=== PATIENT | male | born 1960 | race Two or more races ===

== ENCOUNTER 2017-05-12 19:07 | Emergency (ER) | payer SELFPAY ==
--- NOTE | 2017-05-12 19:15 | PDOC ---
History of Present Illness - General History Source: Patient Exam Limitations: No Limitations - History of Present Illness Initial Comments: 05/12/17 21:02 56 year old male, with significant past medical history of HTN and diabetes, who presents to the emergency room complaining of 2 days of dysuria, urinary frequency, and suprapubic pain. The patient is Kyrgyz speaking and history was obtained and translated by his daughter. He states that the suprapubic pain increases when he feels like he has to urinate. The patient notes that he also experienced lower back pain this morning that has since subsided after taking ibuprofen. Denies hematuria. Denies fever, chills, nausea, vomiting. Denies diarrhea, constipation. Denies any prostate history. Allergies: NKA Social Hx: The patient recently moved here and does not have a PCP, bundle breaker, or filling mixer here. <Alecia Silveira - Last Filed: 05/12/17 21:02> <Dayanna Munoz - Last Filed: 05/12/17 22:16> - General Chief Complaint: Pain, Acute Stated Complaint: PAINFUL URINATION/BACK PAIN Time Seen by Provider: 05/12/17 19:11 Past History <Alecia Silveira - Last Filed: 05/12/17 21:02> <Dayanna Munoz - Last Filed: 05/12/17 22:16> - Past Medical History Allergies/Adverse Reactions: Allergies Allergy/AdvReac Type Severity Reaction Status Date / Time No Known Allergies Allergy Verified 05/12/17 19:08 Home Medications: Ambulatory Orders Ciprofloxacin [Cipro (Restricted To Id)] 250 mg PO BID #14 tablet 05/12/17 Glipizide [Glipizide ER] 2 mg PO DAILY 05/12/17 Ramipril 5 mg PO DAILY 05/12/17 Review of Systems - Review of Systems Able to Perform ROS?: Yes Comments:: 05/12/17 21:03 GENERAL/CONSTITUTIONAL: No fever or chills. No weakness. HEAD, EYES, EARS, NOSE AND THROAT: No change in vision. No ear pain or discharge. No sore throat. CARDIOVASCULAR: No chest pain or shortness of breath. RESPIRATORY: No cough, wheezing, or hemoptysis. GASTROINTESTINAL: +lower abdominal pain. No nausea, vomiting, diarrhea or constipation. GENITOURINARY: +dysuria +frequency MUSCULOSKELETAL: No joint or muscle swelling or pain. No neck or back pain. SKIN: No rash NEUROLOGIC: No headache, vertigo, loss of consciousness, or change in strength/ sensation. ENDOCRINE: No increased thirst. No abnormal weight change. HEMATOLOGIC/LYMPHATIC: No anemia, easy bleeding, or history of blood clots. ALLERGIC/IMMUNOLOGIC: No hives or skin allergy. <Alecia Silveira - Last Filed: 05/12/17 21:02> *Physical Exam - Vital Signs Last Vital Signs Temp Pulse Resp BP Pulse Ox 98.1 F 92 H 16 174/78 99 05/12/17 19:11 05/12/17 19:11 05/12/17 19:11 05/12/17 19:11 05/12/17 19:11 - Physical Exam Comments: 05/12/17 21:04 GENERAL: Awake, alert, and fully oriented, in no acute distress HEAD: No signs of trauma EYES: PERRLA, EOMI, sclera anicteric, conjunctiva clear ENT: Auricles normal inspection, hearing grossly normal, nares patent, oropharynx clear without exudates. Moist mucosa NECK: Normal ROM, supple, no lymphadenopathy, JVD, or masses LUNGS: Breath sounds equal, clear to auscultation bilaterally. No wheezes, and no crackles HEART: Regular rate and rhythm, normal S1 and S2, no murmurs, rubs or gallops ABDOMEN: +mild suprapubic tenderness.. Mildly distended. Soft, normoactive bowel sounds. No guarding, no rebound. No masses EXTREMITIES: Normal range of motion, no edema. No clubbing or cyanosis. No cords, erythema, or tenderness NEUROLOGICAL: Cranial nerves II through XII grossly intact. Normal speech, normal gait SKIN: Warm, Dry, normal turgor, no rashes or lesions noted. <Alecia Silveira - Last Filed: 05/12/17 21:02> ED Treatment Course - ADDITIONAL ORDERS Additional order review: Laboratory Results 05/12/17 19:15 Urine Color Yellow Urine Appearance Clear Urine pH 5.0 Ur Specific [place] < 1.005 L Urine Protein Negative Urine Glucose (UA) 1+ H Urine Ketones Negative Urine Blood 2+ H Urine Nitrite Negative Urine Bilirubin Negative Urine Urobilinogen 0.2 Ur Leukocyte Esterase Negative Urine RBC 5-10 Urine WBC 0-2 Urine Bacteria Few <Alecia Silveira - Last Filed: 05/12/17 21:02> Progress Note - Progress Note Progress Note: Documentation has been prepared under my direction and personally reviewed by me in its entirety. I attest that this documented accurately reflects all work, treatment, procedures and medical decision making performed by me. <Dayanna Munoz - Last Filed: 05/12/17 22:16> Medical Decision Making - Medical Decision Making As noted above, this 56-year-old man with a history of hypertension/diabetes presents with a few day history of burning with urination along with urinary urgency/frequency. No associated symptoms of fever or nausea/vomiting. Although he noted back pain earlier today (mainly right flank), this was mild and resolved after [id number] ibuprofen. No previous history of UTI and he denies history of prostate issues. Exam as noted. Urinalysis notable for RBCs/WBCs and few bacteria. Urine sent for culture and sensitivity. Especially in light of patient's underlying history of diabetes, we will empirically treat patient with ciprofloxacin 250 mg twice a day. Prescription for one-week course transmitted to pharmacy at first dose given here in the emergency room. Patient does not have a general physician yet (moved here a few months ago). Since patient is self-pay, [facility] will be referred because of their sliding scale policy. Patient will also be given a urology consult. He should call the office tomorrow for follow-up within the next few days. If he has worsening pain/fever /vomiting in the interim, he should return here to the ER. <Dayanna Munoz - Last Filed: 05/12/17 22:16> *DC/Admit/Observation/Transfer - Attestations Scribe Attestion: 05/12/17 21:05 Documentation prepared by LUCINA Daley, acting as medical secretary for Dayanna Munoz MD. <Alecia Silveira - Last Filed: 05/12/17 21:02> <Dayanna Munoz - Last Filed: 05/12/17 22:16> Diagnosis at time of Disposition: UTI (urinary tract infection) Qualifiers: Urinary tract infection type: acute cystitis Hematuria presence: without hematuria Qualified Code(s): N30.00 - Acute cystitis without hematuria - Discharge Dispostion Disposition: HOME Condition at time of disposition: Stable - Prescriptions Prescriptions: Ciprofloxacin [Cipro (Restricted To Id)] 250 mg PO BID #14 tablet - Referrals Referrals: [facility] [Provider Group] Antonio Hudson MD [Staff Physician] - Call tomorrow - Patient Instructions Printed Discharge Instructions: Urinary Tract Infection Additional Instructions: Drink plenty of water Cipro 250 mg twice a day for 1 week Call urologist () tomorrow for follow-up within the next 2-3 days Follow-up with [facility] for general medical care Return to ER if you have worsening pain or develop fever or vomiting Print Language: NIGERIEN
[2017-05-12 19:39] VITALS: BP 174/78; PULSE 92; TEMP 98.1; BMI 21.6
[2017-05-12 19:48] LABS: URINE APPEARANCE CLEAR; URINE COLOR YELLOW
[2017-05-12 19:49] LABS: URINE BILIRUBIN NEGATIVE (NEGATIVE); URINE BLOOD 2+ (NEGATIVE); URINE GLUCOSE (UA) 1+ (NEGATIVE); URINE KETONE NEGATIVE (NEGATIVE); URINE LEUK ESTERASE NEGATIVE (NEGATIVE); URINE NITRITE NEGATIVE (NEGATIVE); URINE PROTEIN NEGATIVE (NEGATIVE); URINE UROBILINOGEN 0.2 (0.2-1.0)
[2017-05-12 20:34] LABS: URINE BACTERIA FEW /hpf (NEGATIVE); URINE WBC 0-2 (0-2)
[2017-05-12] MEDS ORDERED: CIPROFLOXACIN 250 MG TABLET (RESTRICTED TO ID) PO ONE ×2 (20:56→21:05)
== END 2017-05-12 21:34 | disposition home or self-care (01) ==
LOC: FER 19:07
DX: N30.00 Acute cystitis without hematuria (principal); I10 Essential (primary) hypertension; E11.9 Type 2 diabetes mellitus without complications
CPT/HCPCS: 81003; 81015; 87086; 99281-25

== ENCOUNTER 2017-05-14 16:14 | Inpatient (IN) | payer OTHER ==
--- NOTE | 2017-05-14 16:21 | PDOC ---
Rapid Medical Evaluation Time Seen by Provider: 05/14/17 16:17 Medical Evaluation: Allergies Allergy/AdvReac Type Severity Reaction Status Date / Time No Known Allergies Allergy Verified 05/14/17 16:16 05/14/17 16:18 The patient presents with a chief complaint of: rt kidney pain, went to other hopsital yesterday and was told he had a uti. Pt prescribed cipro and took 4 tablets already with worsening pain I have performed a brief in-person evaluation of this patient. Pertinent physical exam findings: vss, I have ordered the following: ua, ucx, cbc, comp The patient will proceed to the ED for further evaluation. Discharge Disposition - Diagnosis Kidney pain - Referrals - Patient Instructions - Post Discharge Activity
--- NOTE | 2017-05-14 16:27 | PDOC ---
History of Present Illness - General Chief Complaint: Pain, Acute Stated Complaint: PAIN Time Seen by Provider: 05/14/17 16:17 History Source: Patient - History of Present Illness Initial Comments: 05/14/17 17:00 Patient is a 56 y.o. male with a PMH of NIDDM and HTN as well as recent evaluation at [facility] who presents to the ED c/o L sided flank pain as well as suprapubic - the latter persisting from his evaluation on 05/12. Patient notes orange colored urine (on Pyridium) as well as urinary retention but no fevers, chills, nausea, vomiting, diarrhea. Patient on Ciprofloxacin following evaluation at [facility] - taken 4 pills with no relief of pain. NKDA Surgical: denies Social: denies cigarettes, denies alcohol, denies recreational drugs PMD: None- will refer Past History - Past Medical History Allergies/Adverse Reactions: Allergies Allergy/AdvReac Type Severity Reaction Status Date / Time No Known Allergies Allergy Verified 05/14/17 16:16 Home Medications: Ambulatory Orders Ciprofloxacin [Cipro (Restricted To Id)] 250 mg PO BID #14 tablet 05/12/17 Glipizide [Glipizide ER] 2 mg PO DAILY 05/12/17 Ramipril 5 mg PO DAILY 05/12/17 COPD: No Diabetes: Yes HTN: Yes - Immunization History Immunization Up to Date: Yes - Suicide/Smoking/Psychosocial Hx Smoking History: Never smoked Have you smoked in the past 12 months: No Hx Alcohol Use: No Drug/Substance Use Hx: No Substance Use Type: None *Physical Exam - Vital Signs Last Vital Signs Temp Pulse Resp BP Pulse Ox 98.3 F 83 20 169/83 99 05/14/17 16:16 05/14/17 16:16 05/14/17 16:16 05/14/17 16:16 05/14/17 16:16 - Physical Exam General Appearance: Yes: Nourished Respiratory/Chest: positive: Lungs Clear Cardiovascular: positive: S1, S2 Gastrointestinal/Abdominal: positive: Distended, Tenderness, Other (Tympanitic in all 4 quadrants). negative: Protuberent, Guarding, Rebound Musculoskeletal: positive: CVA Tenderness (L). negative: CVA Tenderness (R) Extremity: positive: Normal Capillary Refill Integumentary: positive: Normal Color, Dry, Warm Neurologic: positive: Fully Oriented, Alert ED Treatment Course - LABORATORY CBC & Chemistry Diagram: 05/15/17 06:40 05/16/17 06:00 Medical Decision Making - Medical Decision Making 05/14/17 17:21 Patient is a 56 y.o. male who presents abdominal pain, patient currently being treated for UTI (Day 2 of Ceftriaxone). On PE patient's abdomen is distended with some suprapubic TTP. Bedside U/S showed B/L hydronephrosis as well as possible bladder mass (ragged borders, 2-3 cm circumference) - moderate clinical suspicion for malignancy. UA Nitrite (+). Will start patient on IV Abx. CT Scan ordered, pending @ time of signout; patient to be admitted to inpatient medicine service, Dr. Agrawal. *DC/Admit/Observation/Transfer Diagnosis at time of Disposition: Kidney pain, TOYA (acute kidney injury), UTI (urinary tract infection), Urinary retention - Discharge Dispostion Condition at time of disposition: Fair - Referrals - Patient Instructions - Post Discharge Activity
--- NOTE | 2017-05-14 16:30 | PDOC ---
Attending Attestation - HPI HPI: 05/14/17 17:14 56 year old male with PMH of HTN and diabetes, who presents to the emergency room with 4 days of lower abdominal pain, increased abdominal distention and dysuria. - Physicial Exam PE: 05/14/17 17:15 Constitutional: Awake, alert, oriented. No acute distress. Head: Normocephalic. Atraumatic Eyes: PERRL. EOMI. Conjunctivae are not pale. Cardiovascular: Regular rate. Regular rhythm. S1, S2 regular. Distal pulses are 2+ and symmetric. Pulmonary/Chest: No evidence of respiratory distress. Clear to auscultation bilaterally No wheezing, rales or rhonchi. Abdominal: +abdomen is distended to the umbilicus,tympanitic, and diffusely tender. No organomegaly. Back: No CVA tenderness. Skin: Skin is warm and dry. No petechiae. No purpura. Neurological: Alert and oriented to person, place, and time. Cranial nerves II -XII are grossly intact. Normal speech. Strength is grossly symmetric. No sensory deficits. Psychiatric: Good eye contact. Normal interaction, affect and behavior. - Medical Decision Making 05/14/17 17:20 Barrios was placed. [place] urine drained to 1400ccs. Line was clamped so he does not get post obstructive diuresis . <Alecia Silveira - Last Filed: 05/14/17 17:20> - Resident Resident Name: NatyCelsa - ED Attending Attestation I have performed the following: I have examined & evaluated the patient, The case was reviewed & discussed with the resident, I agree w/resident's findings & plan, Exceptions are as noted - Medical Decision Making 05/14/17 16:30 I, Dr. Leeann Lance, DO, attest that this document has been prepared under my direction and personally reviewed by me in its entirety. I further attest, that it accurately reflects all work, treatment, procedures and medical decision -making performed by me. 05/14/17 16:56 a/p: 56yo male with abd pain -distended bladder with urinary retention on bedside ultrasound and exam -will place barrios -labs -ua/cx -will obtain noncon ct to further eval mass vs blood clot in bladder -ivf hydration 05/14/17 17:44 mildly elevated Cr urinary retention nitrite +urine will start abx -heading to CT at this time 05/14/17 18:07 case discussed with IM residents who accepts pt to service <Leeann Lance - Last Filed: 05/14/17 18:08> Discharge Disposition - Discharge Dispostion Admit: Yes <Leeann Lance - Last Filed: 05/14/17 18:08> - Diagnosis Kidney pain, TOYA (acute kidney injury), UTI (urinary tract infection), Urinary retention - Discharge Dispostion Condition at time of disposition: Fair Procedure Note Procedure: Bedside Renal/bladder UltraSound: There was mild hydro bilaterally. There is distention of the bladder, with approximately 900ccs of fluid. There appears to be a possible blood clot or exophytic mass. <lAecia Silveira - Last Filed: 05/14/17 17:20>
[2017-05-14 16:41] LABS: BASO % 0.3 % (0-2.0); EOS % 0.1 % (0-4.5); MCH 29.8 pg (25.7-33.7); MCHC 33.6 g/dl (32.0-35.9); MEAN CELL VOLUME 88.7 fl (80-96); MEAN PLT VOLUME 7.4 fl (7.5-11.1); NEUT % 83.1 % (42.8-82.8); PLATELET COUNT 270 K/MM3 (134-434); WHITE BLOOD COUNT 9.9 K/mm3 (4.0-10.0)
[2017-05-14 16:54] LABS: URINE APPEARANCE CLEAR; URINE BILIRUBIN NEGATIVE (NEGATIVE); URINE BLOOD 2+ (NEGATIVE); URINE COLOR AMBER; URINE GLUCOSE (UA) 1+ (NEGATIVE); URINE KETONE NEGATIVE (NEGATIVE); URINE LEUK ESTERASE NEGATIVE (NEGATIVE); URINE NITRITE POSITIVE (NEGATIVE); URINE PROTEIN NEGATIVE (NEGATIVE); URINE UROBILINOGEN 4.0 E.U/dl mg/dL (0.2-1.0)
[2017-05-14] MEDS ORDERED: SODIUM CHLORIDE 0.9% 1000 ML INFUS.BAG IV ONE ×2 (16:55→18:05)
[2017-05-14] MEDS ORDERED: morphine CARPU-JECT 2 MG/1 ML DISP.SYRIN IVPUSH ONE (16:58)
[2017-05-14 17:11] LABS: ALBUMIN 3.8 g/dl (3.4-5.0); ALK PHOS 65 U/L (45-117); ANION GAP 9 (8-16); BILIRUBIN,TOTAL 0.5 mg/dL (0.2-1.0); CALCIUM 8.2 mg/dL (8.5-10.1); CO2 24 mmol/L (21-32); CREATININE 2.5 mg/dL (0.7-1.3); GLUCOSE,RANDOM 164 mg/dL (74-106); SGOT/AST 21 U/L (15-37); SGPT/ALT 21 U/L (12-78); TOT PROT 7.2 g/dl (6.4-8.2)
[2017-05-14] MEDS ORDERED: morphine SULFATE 4 MG/ML VIAL ONE (17:25)
[2017-05-14 17:43] LABS: URINE RBC 17 /hpf (0-3); URINE WBC 12 /hpf (3-5)
[2017-05-14] MEDS ORDERED: cefTRIAXone 1 GM/50 ML BAG (PRE-DOCKED) IVPB ONE (18:05)
[2017-05-14] MEDS ORDERED: CEFTRIAXONE 1 GM/50 ML BAG ONE (19:07)
[2017-05-14] MEDS ORDERED: morphine SULFATE 4 MG/ML VIAL IVPUSH PRN (20:25)
--- NOTE | 2017-05-14 20:29 | MSN ---
Admitting History and Physical - Admission Chief Complaint: Right flank pain History of Present Illness: Austen Arzate is a 56 year old male with past medical history of DM and HTN who presents with right flank pain that radiates to the middle of his lower abdomen. Patient states that he went to [place] [facility] on 05/12/17 for right flank pain. He was diagnosed with UTI and discharged with Cipro 250 mg. Patient is back today for worsening flank pain, lower abdominal pain, and urinary urgency. Patient states at home when he tried to urinate he was experiencing hesitancy and dribbling. Patient states that he feels like his abdomen was distended. Patient states his pain and distension was relieved after urinary catheterization and morphine 2 mg. Patient reports orange colored urine because he was taking Pyridium. Patient denies fever, chills, hematuria, urinary frequency, history of prostate issues. ` ED course was notable for: 1. Creatinine of 2.5, Sodium of 130 2. Bedside US showed enlargement of the prostate/mass in the bladder 3. UA showed WBC and +nitrite History Source: Family Member, Medical Record Limitations to Obtaining History: Language Barrier - Past Medical History Cardiovascular: Yes: HTN Endocrine: Yes: Diabetes Mellitus - Smoking History Smoking history: Never smoked Have you smoked in the past 12 months: No - Alcohol/Substance Use Hx Alcohol Use: No - Social History Usual Living Arrangement: Yes: With Spouse Home Medications - Allergies Allergies/Adverse Reactions: Allergies Allergy/AdvReac Type Severity Reaction Status Date / Time No Known Allergies Allergy Verified 05/14/17 16:16 - Home Medications Home Medications: Ambulatory Orders Ciprofloxacin [Cipro (Restricted To Id)] 250 mg PO BID #14 tablet 05/12/17 Glipizide [Glipizide ER] 2 mg PO DAILY 05/12/17 Ramipril 5 mg PO DAILY 05/12/17 Review of Systems - Review of Systems Constitutional: reports: No Symptoms Eyes: reports: No Symptoms HENT: reports: No Symptoms Neck: reports: No Symptoms Cardiovascular: reports: No Symptoms Respiratory: reports: No Symptoms Gastrointestinal: reports: Abdominal Pain Genitourinary: reports: Flank Pain, Urgency Musculoskeletal: reports: No Symptoms Integumentary: reports: No Symptoms Neurological: reports: No Symptoms Physical Examination Vital Signs: Vital Signs Temperature 98.3 F 05/14/17 16:16 Pulse Rate 83 05/14/17 16:16 Respiratory Rate 20 05/14/17 16:16 Blood Pressure 169/83 05/14/17 16:16 O2 Sat by Pulse Oximetry (%) 99 05/14/17 16:16 Constitutional: Yes: Well Nourished, No Distress, Calm Eyes: Yes: Conjunctiva Clear, EOM Intact HENT: Yes: Atraumatic, Normocephalic Neck: Yes: Supple, Trachea Midline Cardiovascular: Yes: Regular Rate and Rhythm Respiratory: Yes: Regular, CTA Bilaterally Gastrointestinal: Yes: Normal Bowel Sounds, Soft, Other (Abdomen non-distended, bowel sounds present and normoactive) ...Rectal Exam: Yes: Other (Prostate is smooth and firm, 1.5 finger breadth on each side, upper limit of the prostate cannot be reached.) Renal/: Yes: Other (No CVA tenderness) Musculoskeletal: Yes: WNL Extremities: Yes: WNL Edema: No Neurological: Yes: Alert, Oriented Labs: CBC, BMP 05/14/17 16:31 05/14/17 16:31 Assessment/Plan Austen Arztae is a 56 yo M with PMHx of DM and HTN who presents with right flank pain. Patient is being admitted for UTI secondary to prostate enlargement. 1. UTI secondary to prostate enlargement - UA was positive for nitrites, urine WBC 12, urine RBC 17 - US of the kidney showed bilateral hydronephrosis secondary to urinary retention with 900 ccs - ROB- enlarged prostate, smooth and firm, upper limit could not be reached, 1.5 finger breadths on each side - Will get PSA - Start Flomax 2. DM - BGM - Hold glipizide - Start sliding scale 3. HTN - Hold ACEi due to increased Cr of 2.5 - Norvasc 5mg PO daily 4. TOYA likely post renal secondary to enlarged prostate - Creatinine 2.5 - Hold Ramipril - Urinary catheter in place, will monitor creatinine 5. DVT Proph - Heparin 5000U SQ Dispo: Admit to observation.
[2017-05-14 20:32] LABS: URINE LEUK ESTERASE Negative (NEGATIVE)
[2017-05-14] MEDS: SODIUM CHLORIDE 1,000 ML IV SCH (21:02)
--- NOTE | 2017-05-14 21:02 | HP ---
<Michel Packl - Last Filed: 05/14/17 20:36> CHIEF COMPLAINT: right flank, abdominal, and suprapubic pain PCP: Does not have but wants HISTORY OF PRESENT ILLNESS: 56 year old M with pmh of HTN and DM presenting with right flank, abdominal, and suprapubic pain. Patient states he went to [place] on 05/12 for similar symptoms. He was diagnosed with UTI and d/c on ciprofloxacin. He took 4 pills but his pain worsened so he came into the ER. Patient endorses dysuria, abdominal distention, urinary dribbling and hesitancy. Patient denies fever, chills, hematuria, hx of prostate issues. ER course was notable for: (1) VS- BP elevated (2) Cr- 2.5, UA- Wbc-12, nitrite-positive (3) CT abd/pelvis- Diffuse nonspecific prostate enlargement, minimal bilateral hydronephrosis Recent Travel: denies PAST MEDICAL HISTORY: as per hpi PAST SURGICAL HISTORY: denies Social History: Smoking: denies Alcohol: denies Drugs: denies Family History: Allergies No Known Allergies Allergy (Verified 05/14/17 16:16) HOME MEDICATIONS: Home Medications Medication Instructions Recorded Ciprofloxacin [Cipro (Restricted 250 mg PO BID #14 tablet 05/12/17 To Id)] Glipizide [Glipizide ER] 2 mg PO DAILY 05/12/17 Ramipril 5 mg PO DAILY 05/12/17 REVIEW OF SYSTEMS CONSTITUTIONAL: Absent: fever, chills, diaphoresis, generalized weakness, malaise, loss of appetite, weight change HEENT: Absent: rhinorrhea, nasal congestion, throat pain, throat swelling, difficulty swallowing, mouth swelling, ear pain, eye pain, visual changes CARDIOVASCULAR: Absent: chest pain, syncope, palpitations, irregular heart rate, lightheadedness , peripheral edema RESPIRATORY: Absent: cough, shortness of breath, dyspnea with exertion, orthopnea, wheezing, stridor, hemoptysis GASTROINTESTINAL: Absent: abdominal pain, abdominal distension, nausea, vomiting, diarrhea, constipation, melena, hematochezia GENITOURINARY: Absent: dysuria, frequency, urgency, hesitancy, hematuria, flank pain, genital pain MUSCULOSKELETAL: Absent: myalgia, arthralgia, joint swelling, back pain, neck pain SKIN: Absent: rash, itching, pallor HEMATOLOGIC/IMMUNOLOGIC: Absent: easy bleeding, easy bruising, lymphadenopathy, frequent infections ENDOCRINE: Absent: unexplained weight gain, unexplained weight loss, heat intolerance, cold intolerance NEUROLOGIC: Absent: headache, focal weakness or paresthesias, dizziness, unsteady gait, seizure, mental status changes, bladder or bowel incontinence PSYCHIATRIC: Absent: anxiety, depression, suicidal or homicidal ideation, hallucinations. PHYSICAL EXAMINATION Vital Signs - 24 hr 05/14/17 16:16 Temperature 98.3 F Pulse Rate 83 Respiratory 20 Rate Blood Pressure 169/83 O2 Sat by Pulse 99 Oximetry (%) GENERAL: Awake, alert, and fully oriented, in no acute distress. HEAD: Normal with no signs of trauma. EYES: Extraocular movements intact, sclera anicteric, conjunctiva clear. No lid lag. EARS, NOSE, THROAT: Oropharynx clear without exudates. Moist mucous membranes. NECK: Normal range of motion, supple without lymphadenopathy, JVD, or masses. LUNGS: Breath sounds equal, clear to auscultation bilaterally. No wheezes, and no crackles. No accessory muscle use. HEART: Regular rate and rhythm, normal S1 and S2 without murmur, rub or gallop. ABDOMEN: Soft, nontender, not distended, normoactive bowel sounds, no guarding, no rebound, no masses. No hepatomegaly or splenomegaly. MUSCULOSKELETAL: Normal range of motion at all joints. No bony deformities or tenderness. No CVA tenderness. UPPER EXTREMITIES: 2+ pulses, warm, well-perfused. No cyanosis. No clubbing. No peripheral edema. LOWER EXTREMITIES: 2+ pulses, warm, well-perfused. No calf tenderness. No peripheral edema. NEUROLOGICAL: Cranial nerves II-XII intact. Normal speech. PSYCHIATRIC: Cooperative. Good eye contact. Appropriate mood and affect. SKIN: Warm, dry, normal turgor, no rashes or lesions noted, normal capillary refill. RECTAL: firm, smooth, nontender prostate with enlargement Laboratory Results - last 24 hr 05/14/17 05/14/17 05/14/17 16:30 16:31 16:31 WBC 9.9 RBC 4.62 Hgb 13.8 Hct 41.0 MCV 88.7 MCH 29.8 MCHC 33.6 RDW 15.0 Plt Count 270 MPV 7.4 L Neutrophils % 83.1 H Lymphocytes % 8.2 Monocytes % 8.3 Eosinophils % 0.1 Basophils % 0.3 Sodium 130 L Potassium 4.2 Chloride 97 L Carbon Dioxide 24 Anion Gap 9 BUN 14 Creatinine 2.5 H Creat Clearance w eGFR 26.85 Random Glucose 164 H Calcium 8.2 L Total Bilirubin 0.5 AST 21 ALT 21 Alkaline Phosphatase 65 Total Protein 7.2 Albumin 3.8 Urine Color Rajwinder Urine Appearance Clear Urine pH 5.0 Ur Specific [place] 1.010 Urine Protein Negative Urine Glucose (UA) 1+ H Urine Ketones Negative Urine Blood 2+ H Urine Nitrite Positive Urine Bilirubin Negative Urine Urobilinogen 4.0 e.u/dl Urine WBC (Auto) 12 Urine RBC (Auto) 17 Ur Epithelial Cells Rare ASSESSMENT/PLAN: 56 year old M with pmh of HTN and DM presenting with right flank pain, suprapubic pain, and abdominal distention placed into obs for UTI 2/2 to obstruction. #UTI 2/2 to prostate enlargement -Ceftriaxone 1 g daily -Strict I/O -Flomax 0.4 mg daily -IVF NS @ 125 cc/hr -Morphine 1 mg q4h prn -Strict I/O #TOYA -IVF NS @ 125 cc/hr -monitor Cr -avoid nephrotoxic medications #HTN -Hold ti inhibitor 2/2 to TOYA -Amlodipine 5 mg po daily #DM -BGM achs -ISS achs #FEN/GI -IVF NS @ 125 cc/hr -wnl -Sodium/Diabetic Diet #PPx DVT- Heparin 5000 U sq q8h GI- No GI ppx indicated at this time Case discussed with medical team Visit type - Emergency Visit Emergency Visit: Yes ED Registration Date: 05/14/17 Care time: The patient presented to the Emergency Department on the above date and was hospitalized for further evaluation of their emergent condition. - New Patient This patient is new to me today: Yes Date on this admission: 05/14/17 - Critical Care Critical Care patient: No <Tamiko Agrawal - Last Filed: 05/14/17 22:10> Patient is seen and examined with resident 56 year old male with abdominal pain, distention and reported disuria for 2 weeks Found to have acute urinary retention, 1400 cc drained after placing barrios ABDOMEN: Soft, nontender, not distended, normoactive bowel sounds, no guarding, no rebound, no masses. No hepatomegaly or splenomegaly. MUSCULOSKELETAL: Normal range of motion at all joints. No bony deformities or tenderness. No CVA tenderness. UPPER EXTREMITIES: 2+ pulses, warm, well-perfused. No cyanosis. No clubbing. No peripheral edema. CBC, BMP 05/14/17 16:31 05/14/17 16:31 CT scan suggestive of prostate enlargement bedside US - b/l hydronephrosis 1. Acute renal failure - this is clearly secondary to acute on chronic urinary retention , secondary to prostate enlargement . Less then 3 fold rise in creatinine assuming normal baseline. Anticipate rapid improvement since obstruction is relived. - keep barrios in - PSA - Flomax PO - will treat UTI as he is symptomatic, PO antibiotics - urology follow up 2. Hyponatremia - 2/ #1 Based on symptoms of urinary retention and renal insufficiency this patient meets necessity for the first midnight of hospitalization due to need for monitoring of creatinine and urinary output. However , due to anticipated improvement of renal failure after relief of urinary obstruction , anticipated length of stay is less then two midnights . Observation
[2017-05-14 21:15] VITALS: BMI 26.2
[2017-05-14] MEDS: amLODIPine BESYLATE 5 MG TABLET (FP) PO SCH (22:04)
[2017-05-14] MEDS: INSULIN SLIDING SCALE (NOVOLOG) 1 VIAL SQ SCH (22:06)
[2017-05-15] MEDS: SODIUM CHLORIDE 1,000 ML IV SCH ×2 (06:07→15:09)
[2017-05-15] MEDS: INSULIN SLIDING SCALE (NOVOLOG) 1 VIAL SQ SCH ×4 (06:26→22:01)
[2017-05-15 07:29] LABS: BASO % 0.6 % (0-2.0); EOS % 0.9 % (0-4.5); MCH 28.9 pg (25.7-33.7); MCHC 32.8 g/dl (32.0-35.9); MEAN CELL VOLUME 88.2 fl (80-96); MEAN PLT VOLUME 7.5 fl (7.5-11.1); PLATELET COUNT 238 K/MM3 (134-434); RDW 15.1 % (11.9-15.9); WHITE BLOOD COUNT 6.8 K/mm3 (4.0-10.0)
[2017-05-15 08:02] LABS: ANION GAP 7 (8-16); CALCIUM 7.6 mg/dL (8.5-10.1); CO2 26 mmol/L (21-32); CREATININE 1.5 mg/dL (0.7-1.3); GLUCOSE,RANDOM 104 mg/dL (74-106); MAGNESIUM 2.6 mg/dL (1.8-2.4); PHOSPHOROUS 3.7 mg/dL (2.5-4.9)
[2017-05-15] MEDS: TAMSULOSIN HCL 0.4 MG CAP.ER.24H (FP) PO SCH (08:41)
[2017-05-15] MEDS: amLODIPine BESYLATE 5 MG TABLET (FP) PO SCH (09:21)
[2017-05-15] MEDS: CEFTRIAXONE 1 G/50 ML PREMIX 50 ML IVPB SCH (09:21)
[2017-05-15] MEDS ORDERED: CEFTRIAXONE 1 GM in DEXTROSE 5%-WATER - 50 ML IVPB SCH (10:00)
--- NOTE | 2017-05-15 12:38 | PN ---
Physical Exam: SUBJECTIVE: Patient seen and examined. OOB to chair, He denies suprapubic pain, fever, chills, nausea, vomiting. OBJECTIVE: Vital Signs Period Temp Pulse Resp BP Sys/Garvin Pulse Ox Last 24 Hr 98.0 F-99.4 F 71-89 16-20 128-169/61-83 96-99 PE Neuro: alert, awake, cn 2-12intact Pulm: CTAB CV: s1 s2 rrr no mrg Abd: s nt nd + bs : barrios, hematuria Ext: no le edema, warm Laboratory Results - last 24 hr 05/14/17 05/15/17 05/15/17 22:05 05:40 06:40 WBC 6.8 D RBC 4.19 Hgb 12.1 D Hct 37.0 MCV 88.2 MCH 28.9 MCHC 32.8 RDW 15.1 Plt Count 238 MPV 7.5 Neutrophils % 66.0 D Lymphocytes % 21.5 D Monocytes % 11.0 H Eosinophils % 0.9 D Basophils % 0.6 Sodium Potassium Chloride Carbon Dioxide Anion Gap BUN Creatinine Creat Clearance w eGFR POC Glucometer 100 91 Random Glucose Calcium Phosphorus Magnesium Total Bilirubin AST ALT Alkaline Phosphatase Total Protein Albumin Urine Color Urine Appearance Urine pH Ur Specific [place] Urine Protein Urine Glucose (UA) Urine Ketones Urine Blood Urine Nitrite Urine Bilirubin Urine Urobilinogen Ur Leukocyte Esterase Urine WBC (Auto) Urine RBC (Auto) Ur Epithelial Cells 05/15/17 05/15/17 06:40 11:23 WBC RBC Hgb Hct MCV MCH MCHC RDW Plt Count MPV Neutrophils % Lymphocytes % Monocytes % Eosinophils % Basophils % Sodium 143 Potassium 3.8 Chloride 110 H D Carbon Dioxide 26 Anion Gap 7 L BUN 11 D Creatinine 1.5 H D Creat Clearance w eGFR POC Glucometer 83 Random Glucose 104 D Calcium 7.6 L Phosphorus 3.7 Magnesium 2.6 H Total Bilirubin AST ALT Alkaline Phosphatase Total Protein Albumin Urine Color Urine Appearance Urine pH Ur Specific [place] Urine Protein Urine Glucose (UA) Urine Ketones Urine Blood Urine Nitrite Urine Bilirubin Urine Urobilinogen Ur Leukocyte Esterase Urine WBC (Auto) Urine RBC (Auto) Ur Epithelial Cells Active Medications Generic Name Dose Route Start Last Admin Trade Name Freq PRN Reason Stop Dose Admin Amlodipine Besylate 5 mg 05/14/17 20:45 05/15/17 09:21 Norvasc - PO 5 mg DAILY NED Administration Docusate Sodium 100 mg 05/15/17 14:00 Colace - PO TID NED Heparin Sodium (Porcine) 5,000 unit 05/15/17 22:00 Heparin - SQ TID [facility] CEFTRIAXONE 1 G/50 ML PREMIX 50 mls @ 100 mls/hr 05/15/17 10:00 05/15/17 09: 21 Ceftriaxone 1 Gm-D5w Bag IVPB 100 mls/hr DAILY NED Administration Sodium Chloride 1,000 mls @ 83 mls/hr 05/15/17 12:25 Normal Saline - IV ASDIR NED Insulin Aspart 1 vial 05/15/17 12:24 Novolog Vial Sliding Scale - SQ ACHS [facility] Protocol Morphine Sulfate 1 mg 05/14/17 20:25 Morphine Sulfate IVPUSH Q4H PRN PAIN Polyethylene Glycol 17 gm 05/15/17 12:30 Miralax (For Daily Use) - PO DAILY NED Senna 2 tab 05/15/17 22:00 Senna - PO HS NED Tamsulosin HCl 0.4 mg 05/15/17 08:30 05/15/17 08:41 Flomax - PO 0.4 mg DAILY@0830 NED Administration Assessment: 56 year old male with HTN and DM presenting with right flank, abdominal, and suprapubic pain, he was seen in [facility] on 05/12/17 for UTI, dc with cipro, presented to [facility] after 4 days with worsening symptoms of dysuria, abdominal distention, dysuria, urinary incontinence. Plan: 1. Complicated UTI - Likely 2/2 post obstructive retention from BPH - Failed outpt abx therapy - Previous urine cx negative, repeat pending - Ceftriaxone daily (day 2) 2. Urinary retentionw/ mild hydro/hematuria - Likely due to unmanaged BPH - CTAP reviewed - Urology consulted, will see pt 3. BPH - Started flomax 0.4mg daily - PSA level pending 4. TOYA - Likely post obstructive, maintain barrios - NESHA held - Cr improving - Decrease fluids 83cc/hr 5. HTN - NESHA held for toya - Started norvasc 5mg daily, uptitrate as needed 6. Constipation - Bowel regimen started 7. DVT - Heparin sq Visit type - Emergency Visit Emergency Visit: Yes ED Registration Date: 05/15/17 Care time: The patient presented to the Emergency Department on the above date and was hospitalized for further evaluation of their emergent condition. - New Patient This patient is new to me today: Yes Date on this admission: 05/15/17 - Critical Care Critical Care patient: No
[2017-05-15] MEDS: POLYETHYLENE GLYCOL 3350 119 GM BTL PO SCH (13:00)
[2017-05-15] MEDS: DOCUSATE SODIUM 100 MG CAPSULE (FP) PO SCH ×2 (14:06→22:01)
[2017-05-15] MEDS: HEPARIN NA (PORCINE) 5,000 UNITS/ML 1ML VIAL SQ SCH (22:00)
[2017-05-15] MEDS: SENNOSIDES 8.6MG TABLET (FP) PO SCH (22:01)
[2017-05-16] MEDS: SODIUM CHLORIDE 1,000 ML IV SCH ×2 (03:17→15:32)
[2017-05-16] MEDS: HEPARIN NA (PORCINE) 5,000 UNITS/ML 1ML VIAL SQ SCH ×3 (05:48→21:40)
[2017-05-16] MEDS: DOCUSATE SODIUM 100 MG CAPSULE (FP) PO SCH ×3 (05:49→21:40)
[2017-05-16] MEDS: INSULIN SLIDING SCALE (NOVOLOG) 1 VIAL SQ SCH ×4 (06:26→21:12)
[2017-05-16 08:32] LABS: ANION GAP 7 (8-16); CALCIUM 7.8 mg/dL (8.5-10.1); CO2 29 mmol/L (21-32); CREATININE 1.2 mg/dL (0.7-1.3); GLUCOSE,RANDOM 95 mg/dL (74-106)
[2017-05-16] MEDS: TAMSULOSIN HCL 0.4 MG CAP.ER.24H (FP) PO SCH ×2 (08:46→21:40)
[2017-05-16] MEDS: POLYETHYLENE GLYCOL 3350 119 GM BTL PO SCH (09:27)
[2017-05-16] MEDS: amLODIPine BESYLATE 5 MG TABLET (FP) PO SCH (09:27)
[2017-05-16] MEDS: CEFTRIAXONE 1 G/50 ML PREMIX 50 ML IVPB SCH (09:27)
--- NOTE | 2017-05-16 14:47 | PN ---
Physical Exam: SUBJECTIVE: Patient seen and examined. He is in bed, he has no complaints, no fever, chills, abdominal pain. OBJECTIVE: Vital Signs Period Temp Pulse Resp BP Sys/Garvin Pulse Ox Last 24 Hr 98.1 F-99.4 F 76-83 18-20 134-162/67-74 96 PE Neuro: alert, awake, cn 2-12intact Pulm: CTAB CV: s1 s2 rrr no mrg Abd: s nt nd + bs : barrios, + yellow urine Ext: warm, no edema Laboratory Results - last 24 hr 05/15/17 05/15/17 05/15/17 06:40 16:56 21:58 Sodium Potassium Chloride Carbon Dioxide Anion Gap BUN Creatinine POC Glucometer 82 92 Random Glucose Calcium Prostate Specific Ag 9.20 H 05/16/17 05/16/17 05/16/17 05:47 06:00 11:35 Sodium 144 Potassium 4.3 Chloride 108 H Carbon Dioxide 29 Anion Gap 7 L BUN 11 Creatinine 1.2 POC Glucometer 104 95 Random Glucose 95 Calcium 7.8 L Prostate Specific Ag Active Medications Generic Name Dose Route Start Last Admin Trade Name Freq PRN Reason Stop Dose Admin Amlodipine Besylate 5 mg 05/14/17 20:45 05/16/17 09:27 Norvasc - PO 5 mg DAILY NED Administration Docusate Sodium 100 mg 05/15/17 14:00 05/16/17 14:28 Colace - PO 100 mg TID NED Administration Heparin Sodium (Porcine) 5,000 unit 05/15/17 22:00 05/16/17 14:28 Heparin - SQ 5,000 unit TID NED Administration CEFTRIAXONE 1 G/50 ML PREMIX 50 mls @ 100 mls/hr 05/15/17 10:00 05/16/17 09: 27 Ceftriaxone 1 Gm-D5w Bag IVPB 100 mls/hr DAILY NED Administration Sodium Chloride 1,000 mls @ 83 mls/hr 05/15/17 12:25 05/16/17 03:17 Normal Saline - IV 83 mls/hr ASDIR NED Administration Insulin Aspart 1 vial 05/15/17 12:24 05/16/17 11:42 Novolog Vial Sliding Scale - SQ Not Given ACHS NED Protocol Morphine Sulfate 1 mg 05/14/17 20:25 Morphine Sulfate IVPUSH Q4H PRN PAIN Polyethylene Glycol 17 gm 05/15/17 12:30 05/16/17 09:27 Miralax (For Daily Use) - PO 17 gm DAILY NED Administration Senna 2 tab 05/15/17 22:00 05/15/17 22:01 Senna - PO 2 tab HS NED Administration Tamsulosin HCl 0.4 mg 05/15/17 08:30 05/16/17 08:46 Flomax - PO 0.4 mg DAILY@0830 NED Administration Microbiology 05/14/17 16:30 Urine Culture - Final Urine - Urine Clean Catch NO GROWTH OBTAINED Assessment: 56 year old male with HTN and DM presenting with right flank, abdominal, and suprapubic pain, he was seen in [place] ED on 05/12/17 for UTI, dc with cipro, presented to [facility] after 4 days with worsening symptoms of dysuria, abdominal distention, dysuria, urinary incontinence. Plan: 1. Complicated UTI - Likely 2/2 post obstructive retention from BPH - Repeat Urine cx negative - Ceftriaxone daily (day 3) 2. BPH - Increase flomax 0.4mg BID - Started Finestride 5mg daily - PSA level may be falsely elevated, repeat in 2 months - D/w urology, pt will likely need open prostatectomy, if does not void will dc home w barrios and [facility] referral 3. Urinary retention/ mild hydro/hematuria - Likely due to unmanaged BPH - Hematuria resolved - Discontinue barrios tomorrow, start voiding trial, may be difficult due to size of prostate, see above if fails trial 4. TOYA - Likely post obstructive - Cr wnl - Stop fluids 5. HTN - Resume home NESHA tomorrow, increase dose to 10mg daily - Started on norvasc 5mg daily, in lieu of NESHA 6. Constipation - Bowel regimen started 7. DVT - Heparin sq Visit type - Emergency Visit Emergency Visit: Yes ED Registration Date: 05/15/17 Care time: The patient presented to the Emergency Department on the above date and was hospitalized for further evaluation of their emergent condition. - New Patient This patient is new to me today: No - Critical Care Critical Care patient: No
--- NOTE | 2017-05-16 15:21 | CON.GU ---
Consult Consult Specialty:: Referred by:: gabi Reason for Consultation:: urainry retention - History of Present Illness Chief Complaint: urinary retention History of Present Illness: 56 year old male who has not seen an MD for years presents with urinary retention, TOYA, fecal impaction. He denies LUTS prior to admission. Has never seen a Urologist. His CT revealed mild bilateral hydroureteronephrosis with a very thick bladder wall and an very enlarged prostate. Barrios cath was placed and some hematuria was seen. - History Source History Provided By: Patient, Medical Record Limitations to Obtaining History: No Limitations - Past Medical History Cardio/Vascular: Yes: HTN Renal/: No: Renal Failure, Renal Inusuff, BPH, Cancer, Hematuria, Hemodialysis , Neurogenic Bladder, Renal Calculi, UTI, Other Endocrine: Yes: Diabetes Mellitus - Alcohol/Substance Use Hx Alcohol Use: No - Smoking History Smoking history: Never smoked Have you smoked in the past 12 months: No Home Medications - Allergies Allergies/Adverse Reactions: Allergies Allergy/AdvReac Type Severity Reaction Status Date / Time No Known Allergies Allergy Verified 05/14/17 16:16 - Home Medications Home Medications: Ambulatory Orders Ciprofloxacin [Cipro (Restricted To Id)] 250 mg PO BID #14 tablet 05/12/17 Glipizide [Glipizide ER] 2 mg PO DAILY 05/12/17 Ramipril 5 mg PO DAILY 05/12/17 Review of Systems - Review of Systems Genitourinary: reports: Frequency, Hematuria, Incontinence, Urgency Physical Exam- Vital Signs: Vital Signs Temperature 98.1 F 05/16/17 09:29 Pulse Rate 83 05/16/17 09:29 Respiratory Rate 20 05/16/17 09:29 Blood Pressure 162/74 05/16/17 09:29 O2 Sat by Pulse Oximetry (%) 96 05/15/17 22:00 Constitutional: Yes: Well Nourished Gastrointestinal: Yes: Soft Renal/: Yes: Barrios Present. No: Bladder Distention, CVA Tenderness - Left, CVA Tenderness - Right, Hematuria, Incontinence, Scrotal Edema Labs: CBC, BMP 05/15/17 06:40 05/16/17 06:00 Imaging - Results Cat Scan: Report Reviewed Problem List - Problems (1) BPH loc w urin obs/LUTS Assessment/Plan: patient with untreated long standing and severe BPH. Maintain barrios for now. flomax and finasteride. follow creatinine. PSA 9.2 may be artificially high due to retention. He also has a very large prostate and my be a reflection of benign disease. should have it repeated in two months. Code(s): N40.1 - BENIGN PROSTATIC HYPERPLASIA WITH LOWER URINARY TRACT SYMP (2) Urinary retention Code(s): R33.9 - RETENTION OF URINE, UNSPECIFIED
[2017-05-16] MEDS: FINASTERIDE 5 MG TABLET (FP) PO SCH (15:33)
[2017-05-16] MEDS: SENNOSIDES 8.6MG TABLET (FP) PO SCH (21:40)
[2017-05-17] MEDS: DOCUSATE SODIUM 100 MG CAPSULE (FP) PO SCH ×3 (05:59→22:04)
[2017-05-17] MEDS: HEPARIN NA (PORCINE) 5,000 UNITS/ML 1ML VIAL SQ SCH ×3 (05:59→22:05)
[2017-05-17] MEDS: INSULIN SLIDING SCALE (NOVOLOG) 1 VIAL SQ SCH ×4 (06:09→22:15)
[2017-05-17] MEDS: CEFTRIAXONE 1 G/50 ML PREMIX 50 ML IVPB SCH (09:27)
[2017-05-17] MEDS: TAMSULOSIN HCL 0.4 MG CAP.ER.24H (FP) PO SCH ×2 (09:28→22:04)
[2017-05-17] MEDS: FINASTERIDE 5 MG TABLET (FP) PO SCH (09:28)
[2017-05-17] MEDS: LISINOPRIL 10 MG TABLET (FP) PO SCH (09:28)
[2017-05-17] MEDS: POLYETHYLENE GLYCOL 3350 119 GM BTL PO SCH (09:29)
[2017-05-17 09:31] LABS: ANION GAP 7 (8-16); CALCIUM 8.4 mg/dL (8.5-10.1); CO2 29 mmol/L (21-32); CREATININE 1.2 mg/dL (0.7-1.3); GLUCOSE,RANDOM 124 mg/dL (74-106)
--- NOTE | 2017-05-17 17:00 | PN ---
Physical Exam: SUBJECTIVE: Patient seen and examined at the bedside. Denies any SOB, denies chest pain. C.o of intermittent discomfort on penis with brarios catheter. OBJECTIVE: barrios with pink tinged urine, will start voiding trail in a.m. as per urology recommendations Vital Signs Period Temp Pulse Resp BP Sys/Garvin Pulse Ox Last 24 Hr 98.2 F-99.1 F 79-90 18-20 125-158/72-79 96-97 GENERAL: The patient is awake, alert, and fully oriented, in no acute distress. HEAD: Normal with no signs of trauma. EYES: PERRL, extraocular movements intact, sclera anicteric, conjunctiva clear. No ptosis. ENT: Ears normal, nares patent, oropharynx clear without exudates, moist mucous membranes. NECK: Trachea midline, full range of motion, supple. HEART: Regular rate and rhythm, S1, S2 without murmur, rub or gallop. ABDOMEN: Soft, nontender, nondistended, normoactive bowel sounds, no guarding, no rebound, no hepatosplenomegaly, no masses. EXTREMITIES: 2+ pulses, warm, well-perfused, no edema. NEUROLOGICAL: Normal speech, gait not observed. PSYCH: Normal mood, normal affect. SKIN: Warm, dry, normal turgor, no rashes or lesions noted Laboratory Results - last 24 hr 05/16/17 05/17/17 05/17/17 21:05 05:43 07:30 Sodium 138 Potassium 4.2 Chloride 102 Carbon Dioxide 29 Anion Gap 7 L BUN 9 Creatinine 1.2 POC Glucometer 110 105 Random Glucose 124 H D Calcium 8.4 L Magnesium 2.0 D 05/17/17 05/17/17 05/17/17 07:30 11:42 16:35 Sodium Potassium Chloride Carbon Dioxide Anion Gap BUN Creatinine POC Glucometer 102 121 Random Glucose Calcium Magnesium Cancelled Active Medications Generic Name Dose Route Start Last Admin Trade Name Freq PRN Reason Stop Dose Admin Docusate Sodium 100 mg 05/15/17 14:00 05/17/17 13:21 Colace - PO 100 mg TID NED Administration Finasteride 5 mg 05/16/17 15:30 05/17/17 09:28 Proscar - PO 5 mg DAILY NED Administration Heparin Sodium (Porcine) 5,000 unit 05/15/17 22:00 05/17/17 13:20 Heparin - SQ 5,000 unit TID NED Administration CEFTRIAXONE 1 G/50 ML PREMIX 50 mls @ 100 mls/hr 05/15/17 10:00 05/17/17 09: 27 Ceftriaxone 1 Gm-D5w Bag IVPB 100 mls/hr DAILY NED Administration Insulin Aspart 1 vial 05/15/17 12:24 05/17/17 16:36 Novolog Vial Sliding Scale - SQ Not Given ACHS [facility] Protocol Lisinopril 10 mg 05/17/17 10:00 05/17/17 09:28 Prinivil PO 10 mg DAILY NED Administration Polyethylene Glycol 17 gm 05/15/17 12:30 05/17/17 09:29 Miralax (For Daily Use) - PO 17 gm DAILY NED Administration Senna 2 tab 05/15/17 22:00 05/16/17 21:40 Senna - PO 2 tab HS NED Administration Tamsulosin HCl 0.4 mg 05/16/17 22:00 05/17/17 09:28 Flomax - PO 0.4 mg BID NED Administration ASSESSMENT/PLAN: Patient is a 56 year old male with a significant past medical history of hypertension and diabetes. He presented to the ED on 05/15/2017 with right flank, abdominal, and suprapubic pain, he was seen in [place] ED on for UTI and was discharged on Cipro. He presented 4 days later with worsening symptoms of dysuria, abdominal distention, dysuria, urinary incontinence. : Complicated UTI, acute on chronic BPH, acute on chronic Urinary retention/ mild hydro/hematuria, acute on chronic Likely due to large prostate and obstructive retention from BPH Elevated PSA level UC negative, vitals stable On Ceftriaxone day #3 On Proscar daily and Flomax BID Voiding trial in a.m as per urology and if does not void, will send home with barrios catheter to follow up outpatient Patient will likely need an open prostatectomy Monitor cbc Renal: TOYA Monitor labs creat stable at 1.2 Cardiac: Hypertension, controlled On Lisinopril 10mg Monitor BP Endocrine: Diabetes Novolog sliding scale Monitor BGMs F.E.N. Fluids: tolerating PO Electrolytes: monitor Nutrition: diabetic diet Prophylaxis: DVT: Heparin GI; deferred Disposition: full code.
[2017-05-17] MEDS: SENNOSIDES 8.6MG TABLET (FP) PO SCH (22:04)
[2017-05-18] MEDS: DOCUSATE SODIUM 100 MG CAPSULE (FP) PO SCH ×3 (05:50→22:24)
[2017-05-18] MEDS: HEPARIN NA (PORCINE) 5,000 UNITS/ML 1ML VIAL SQ SCH ×3 (05:50→22:24)
[2017-05-18] MEDS: INSULIN SLIDING SCALE (NOVOLOG) 1 VIAL SQ SCH ×4 (06:10→22:25)
[2017-05-18 09:04] LABS: BASO % 0.7 % (0-2.0); EOS % 2.6 % (0-4.5); MCH 28.8 pg (25.7-33.7); MCHC 32.6 g/dl (32.0-35.9); MEAN CELL VOLUME 88.3 fl (80-96); MEAN PLT VOLUME 7.4 fl (7.5-11.1); NEUT % 54.5 % (42.8-82.8); PLATELET COUNT 279 K/MM3 (134-434); RDW 15.2 % (11.9-15.9); WHITE BLOOD COUNT 4.7 K/mm3 (4.0-10.0)
[2017-05-18 09:28] LABS: ALBUMIN 3.3 g/dl (3.4-5.0); ANION GAP 9 (8-16); CALCIUM 9.1 mg/dL (8.5-10.1); CO2 30 mmol/L (21-32); GLUCOSE,RANDOM 194 mg/dL (74-106)
[2017-05-18 09:33] LABS: ALK PHOS 53 U/L (45-117); BILIRUBIN,TOTAL 0.7 mg/dL (0.2-1.0); CREATININE 1.3 mg/dL (0.7-1.3); SGOT/AST 12 U/L (15-37); SGPT/ALT 20 U/L (12-78); TOT PROT 6.6 g/dl (6.4-8.2)
[2017-05-18] MEDS ORDERED: PT OWN MED DRAWER 7, Y5N ONE ×2 (11:05→18:36)
[2017-05-18] MEDS: LISINOPRIL 10 MG TABLET (FP) PO SCH (11:06)
[2017-05-18] MEDS: TAMSULOSIN HCL 0.4 MG CAP.ER.24H (FP) PO SCH ×2 (11:07→22:24)
[2017-05-18] MEDS: FINASTERIDE 5 MG TABLET (FP) PO SCH (11:07)
[2017-05-18] MEDS: CEFTRIAXONE 1 G/50 ML PREMIX 50 ML IVPB SCH (11:07)
[2017-05-18] MEDS: POLYETHYLENE GLYCOL 3350 119 GM BTL PO SCH (11:08)
--- NOTE | 2017-05-18 12:13 | PN ---
Progres Note Chief Complaint: urinary retention - Objective Vital Signs: Vital Signs Temperature 98 F 05/18/17 11:10 Pulse Rate 80 05/18/17 11:10 Respiratory Rate 18 05/18/17 11:10 Blood Pressure 151/74 05/18/17 11:10 O2 Sat by Pulse Oximetry (%) 97 05/18/17 06:00 Labs/Additional Data: CBC, BMP 05/18/17 07:00 05/18/17 07:00 Problem List - Problems (1) Urinary retention Code(s): R33.9 - RETENTION OF URINE, UNSPECIFIED Assessment/Plan Pt w recent obstructive uropathy and AUR w pvr >800 cc Barrios previously d/c ed hematuria Replaced barrios w 16 fr to sd draining vclear urine cont med management Repeat voiding trial as medically indicated
--- NOTE | 2017-05-18 15:37 | PN ---
Physical Exam: SUBJECTIVE: Patient seen and examined, barrios was d/cd this morning but pt was unable to urinate and barrios replaced by urology. OBJECTIVE: Vital Signs Period Temp Pulse Resp BP Sys/Garvin Pulse Ox Last 24 Hr 98 F-99 F 71-83 18-20 132-151/68-76 97-97 GENERAL: The patient is awake, alert, and fully oriented, in no acute distress. HEAD: Normal with no signs of trauma. EYES: PERRL, extraocular movements intact, sclera anicteric, conjunctiva clear. No ptosis. ENT: Ears normal, nares patent, oropharynx clear without exudates, moist mucous membranes. NECK: Trachea midline, full range of motion, supple. HEART: Regular rate and rhythm, S1, S2 without murmur, rub or gallop. ABDOMEN: Soft, nontender, nondistended, normoactive bowel sounds, no guarding, no rebound, no hepatosplenomegaly, no masses. EXTREMITIES: 2+ pulses, warm, well-perfused, no edema. NEUROLOGICAL: Normal speech, gait not observed. PSYCH: Normal mood, normal affect. SKIN: Warm, dry, normal turgor, no rashes or lesions noted Laboratory Results - last 24 hr 05/17/17 05/17/17 05/18/17 16:35 21:19 05:48 WBC RBC Hgb Hct MCV MCH MCHC RDW Plt Count MPV Neutrophils % Lymphocytes % Monocytes % Eosinophils % Basophils % Sodium Potassium Chloride Carbon Dioxide Anion Gap BUN Creatinine Creat Clearance w eGFR POC Glucometer 121 135 111 Random Glucose Calcium Total Bilirubin AST ALT Alkaline Phosphatase Total Protein Albumin 05/18/17 05/18/17 07:00 07:00 WBC 4.7 D RBC 4.62 Hgb 13.3 Hct 40.8 MCV 88.3 MCH 28.8 MCHC 32.6 RDW 15.2 Plt Count 279 MPV 7.4 L Neutrophils % 54.5 Lymphocytes % 36.1 D Monocytes % 6.1 Eosinophils % 2.6 D Basophils % 0.7 Sodium 138 Potassium 4.9 Chloride 99 Carbon Dioxide 30 Anion Gap 9 BUN 10 Creatinine 1.3 Creat Clearance w eGFR 57.10 POC Glucometer Random Glucose 194 H D Calcium 9.1 Total Bilirubin 0.7 D AST 12 L D ALT 20 Alkaline Phosphatase 53 Total Protein 6.6 Albumin 3.3 L Active Medications Generic Name Dose Route Start Last Admin Trade Name Harry PRN Reason Stop Dose Admin Docusate Sodium 100 mg 05/15/17 14:00 05/18/17 05:50 Colace - PO 100 mg TID NED Administration Finasteride 5 mg 05/16/17 15:30 05/18/17 11:07 Proscar - PO 5 mg DAILY NED Administration Heparin Sodium (Porcine) 5,000 unit 05/15/17 22:00 05/18/17 05:50 Heparin - SQ 5,000 unit TID NED Administration CEFTRIAXONE 1 G/50 ML PREMIX 50 mls @ 100 mls/hr 05/15/17 10:00 05/18/17 11: 07 Ceftriaxone 1 Gm-D5w Bag IVPB 100 mls/hr DAILY NED Administration Insulin Aspart 1 vial 05/15/17 12:24 05/18/17 12:49 Novolog Vial Sliding Scale - SQ Not Given ACHS NED Protocol Lisinopril 10 mg 05/17/17 10:00 05/18/17 11:06 Prinivil PO 10 mg DAILY NED Administration Polyethylene Glycol 17 gm 05/15/17 12:30 05/18/17 11:08 Miralax (For Daily Use) - PO Not Given DAILY NED Senna 2 tab 05/15/17 22:00 05/17/17 22:04 Senna - PO 2 tab HS NED Administration Tamsulosin HCl 0.4 mg 05/16/17 22:00 05/18/17 11:07 Flomax - PO 0.4 mg BID NED Administration ASSESSMENT/PLAN: Patient is a 56 year old male with a significant past medical history of hypertension and diabetes. He presented to the ED on 05/15/2017 with right flank, abdominal, and suprapubic pain, he was seen in [place] ED on for UTI and was discharged on Cipro. He presented 4 days later with worsening symptoms of dysuria, abdominal distention, dysuria, urinary incontinence. : Complicated UTI, acute on chronic BPH, acute on chronic Urinary retention/ mild hydro/hematuria, acute on chronic Likely due to large prostate and obstructive retention from BPH Elevated PSA level UC negative, vitals stable On Ceftriaxone day #4 On Proscar daily and Flomax BID Voiding trial unsuccessful, barrios replaced by urologist May need to be discharged with barrios with outpatient urology followup Patient will likely need an open prostatectomy Monitor cbc Renal: TOYA Monitor labs creat stable Cardiac: Hypertension, controlled On Lisinopril 10mg Monitor BP Endocrine: Diabetes Novolog sliding scale Monitor BGMs F.E.N. Fluids: tolerating PO Electrolytes: monitor Nutrition: diabetic diet Prophylaxis: DVT: Heparin GI; deferred Disposition: full code. Visit type - Emergency Visit Emergency Visit: Yes ED Registration Date: 05/15/17 Care time: The patient presented to the Emergency Department on the above date and was hospitalized for further evaluation of their emergent condition. - New Patient This patient is new to me today: No - Critical Care Critical Care patient: No - Discharge Referral Referred to [facility] Med [facility].C[facility] No
[2017-05-18] MEDS: SENNOSIDES 8.6MG TABLET (FP) PO SCH (22:24)
[2017-05-19 05:38] VITALS: TEMP 98.4
[2017-05-19] MEDS: DOCUSATE SODIUM 100 MG CAPSULE (FP) PO SCH ×2 (05:38→14:27)
[2017-05-19] MEDS: HEPARIN NA (PORCINE) 5,000 UNITS/ML 1ML VIAL SQ SCH ×2 (05:38→14:27)
[2017-05-19] MEDS: INSULIN SLIDING SCALE (NOVOLOG) 1 VIAL SQ SCH ×2 (06:02→11:00)
[2017-05-19 08:43] LABS: BASO % 0.9 % (0-2.0); EOS % 3.1 % (0-4.5); MCH 28.6 pg (25.7-33.7); MCHC 32.3 g/dl (32.0-35.9); MEAN CELL VOLUME 88.8 fl (80-96); MEAN PLT VOLUME 7.3 fl (7.5-11.1); NEUT % 49.6 % (42.8-82.8); PLATELET COUNT 320 K/MM3 (134-434); WHITE BLOOD COUNT 5.8 K/mm3 (4.0-10.0)
[2017-05-19 09:15] LABS: CALCIUM 8.6 mg/dL (8.5-10.1)
[2017-05-19 09:22] LABS: ALBUMIN 3.4 g/dl (3.4-5.0); ALK PHOS 57 U/L (45-117); ANION GAP 8 (8-16); BILIRUBIN,TOTAL 0.5 mg/dL (0.2-1.0); CO2 28 mmol/L (21-32); CREATININE 1.2 mg/dL (0.7-1.3); GLUCOSE,RANDOM 121 mg/dL (74-106); SGOT/AST 24 U/L (15-37); SGPT/ALT 32 U/L (12-78); TOT PROT 6.8 g/dl (6.4-8.2)
[2017-05-19] MEDS: CEFTRIAXONE 1 G/50 ML PREMIX 50 ML IVPB SCH (09:22)
[2017-05-19] MEDS: POLYETHYLENE GLYCOL 3350 119 GM BTL PO SCH (09:26)
[2017-05-19] MEDS ORDERED: INSULIN (NOVOLOG) ASPART 100 UNITS/ML 10ML VIAL ONE (11:10)
[2017-05-19] MEDS: TAMSULOSIN HCL 0.4 MG CAP.ER.24H (FP) PO SCH (11:22)
[2017-05-19] MEDS: FINASTERIDE 5 MG TABLET (FP) PO SCH (11:22)
[2017-05-19] MEDS: LISINOPRIL 10 MG TABLET (FP) PO SCH (11:22)
--- NOTE | 2017-05-19 11:37 | DS ---
Physical Exam: SUBJECTIVE: Patient seen and examined at the bedside. He will be discharged today with a barrios leg bag with a follow up appointment with Dr. Ramirez. OBJECTIVE: Vital Signs Period Temp Pulse Resp BP Sys/Garvin Pulse Ox Last 24 Hr 98.3 F-98.6 F 74-80 20-20 140-154/68-78 97-98 PHYSICAL EXAM GENERAL: The patient is awake, alert, and fully oriented, in no acute distress. HEAD: Normal with no signs of trauma. EYES: PERRL, extraocular movements intact, sclera anicteric, conjunctiva clear. No ptosis. ENT: Ears normal, nares patent, oropharynx clear without exudates, moist mucous membranes. NECK: Trachea midline, full range of motion, supple. HEART: Regular rate and rhythm, S1, S2 without murmur, rub or gallop. ABDOMEN: Soft, nontender, nondistended, normoactive bowel sounds, no guarding, no rebound, no hepatosplenomegaly, no masses. EXTREMITIES: 2+ pulses, warm, well-perfused, no edema. NEUROLOGICAL: Normal speech, gait not observed. PSYCH: Normal mood, normal affect. SKIN: Warm, dry, normal turgor, no rashes or lesions noted LABS Laboratory Results - last 24 hr 05/18/17 05/18/17 05/19/17 16:55 21:18 05:22 WBC RBC Hgb Hct MCV MCH MCHC RDW Plt Count MPV Neutrophils % Lymphocytes % Monocytes % Eosinophils % Basophils % Sodium Potassium Chloride Carbon Dioxide Anion Gap BUN Creatinine Creat Clearance w eGFR POC Glucometer 111 99 107 Random Glucose Calcium Total Bilirubin AST ALT Alkaline Phosphatase Total Protein Albumin 05/19/17 05/19/17 08:30 08:30 WBC 5.8 RBC 4.77 Hgb 13.7 Hct 42.4 MCV 88.8 MCH 28.6 MCHC 32.3 RDW 15.0 Plt Count 320 MPV 7.3 L Neutrophils % 49.6 Lymphocytes % 39.5 Monocytes % 6.9 Eosinophils % 3.1 Basophils % 0.9 Sodium 137 Potassium 4.3 Chloride 101 Carbon Dioxide 28 Anion Gap 8 BUN 11 Creatinine 1.2 Creat Clearance w eGFR > 60 POC Glucometer Random Glucose 121 H D Calcium 8.6 Total Bilirubin 0.5 D AST 24 D ALT 32 D Alkaline Phosphatase 57 Total Protein 6.8 Albumin 3.4 HOSPITAL COURSE: Date of Admission:05/15/17 Date of Discharge: 05/19/17 ASSESSMENT/PLAN: Patient is a 56 year old male with a significant past medical history of hypertension and diabetes. He presented to the ED on 05/15/2017 with right flank, abdominal, and suprapubic pain, he was seen in [place] ED on for UTI and was discharged on Cipro. He presented 4 days later with worsening symptoms of dysuria, abdominal distention, dysuria, urinary incontinence. : Complicated UTI with prostatitis, acute on chronic BPH, acute on chronic Urinary retention/ mild hydro/hematuria, acute on chronic Elevated PSA level UC negative, vitals stable Received daily doses of Ceftriaxone x 5 doses, will be discharged on Cipro 500mg BID for 10 more days Has follow up appointment with Dr. Ramirez this . Pt is uninsured at this time but will pay out of pocket for the initial visit On Proscar daily and Flomax BID Voiding trials unsuccessful, barrios catheter to continue on discharge May need to be discharged with barrios with outpatient urology followup Patient will likely need an open prostatectomy as per urologist Renal: TOYA, resolved creat stable Cardiac: Hypertension, controlled On Lisinopril 10mg Endocrine: Diabetes continue home medications Disposition: full code. Discharge home with leg bag with follow up appointment with Dr. Ramirez, urologist this . Patient taught how to change barrios and care for same as an outpatient. Minutes to complete discharge: 60 Discharge Summary Reason For Visit: UTI Current Active Problems TOYA (acute kidney injury) (Acute) BPH loc w urin obs/LUTS (Acute) Kidney pain (Acute) UTI (urinary tract infection) (Acute) Urinary retention (Acute) Condition: Stable - Instructions Diet, Activity, Other Instructions: Senor Migue Arzate: Por favor de hacer asya Lizett con la oficina de Doctor Ashley (urologist). Hable con Ernestine y digale a hermelinda que usted no tiene seguro en sammie momento. Por el momento usted vas casiano necesitar el barrios. Vamos a mandarle para la casa con bolsas de barrios. Nueva Medicinas: Flomax 0.4mg, dos veces por day Proscar 5mg, asya ves a el richard Cipro 500mg does veces al el richard hasta que usted judith a el Urologist Lisinopril 10mg Doctor Radha es un doctor primario que hable espanol y el le puede ayudar si usted no tiene seguro. Mr. Migue Arzate: Please follow up with Dr. Ramirez within 3 days after discharge. Please speak with Ernestine and let her know that you do not have medical insurance at this time. You will be sent home with a barrios catheter with ample leg bags. New Medications Flomax 0.4mg, twice per day Proscar 5mg, daily Cipro 500mg, twice per day Lisinopril 10mg A new primary care doctor has been assigned to you, Dr. Garcia, he speaks yakut and can help you with a sliding scale if you do not have any insurance. Marci Clifford NP [facility] @ [facility] [phone] Referrals: Tyrese Decker MD [Staff Physician] - Dashawn Ramirez MD., MD [Staff Physician] - 05/22/17 12:45 pm (please call ernestine at office ) Disposition: HOME - Home Medications Comprehensive Discharge Medication List: Ambulatory Orders Glipizide [Glipizide ER] 2 mg PO DAILY 05/12/17 Ramipril 5 mg PO DAILY 05/12/17 This patient is new to me today: No Emergency Visit: Yes ED Registration Date: 05/15/17 Care time: The patient presented to the Emergency Department on the above date and was hospitalized for further evaluation of their emergent condition. Critical Care patient: No - Discharge Referral Referred to [facility] Med [facility] Yes Physician Referral: Tyrese Garcia MD ([facility])
[2017-05-19 12:23] VITALS: BP 148/72; PULSE 72
== END 2017-05-19 14:40 | disposition home or self-care (01) | DRG 460 ==
LOC: JER 16:14 → INTOOBSV 18:06 → JERBED 18:06 → J6S 20:53 → OBSVTOIN 05-15 12:46
PROVIDERS: ADMIT Internal Medicine; ATTEND Nurse Practitioner Family
PROC: 0T9B70Z Drainage of Bladder with Drainage Device, Via Natural or Artificial Opening (ICD-10-PCS; principal; 2017-05-14)
DX: N17.9 Acute kidney failure, unspecified (principal); N39.0 Urinary tract infection, site not specified; E87.1 Hypo-osmolality and hyponatremia; E11.9 Type 2 diabetes mellitus without complications; I10 Essential (primary) hypertension; N40.1 Benign prostatic hyperplasia with lower urinary tract symptoms; R33.8 Other retention of urine; N13.39 Other hydronephrosis; R31.9 Hematuria, unspecified; K56.41 Fecal impaction; N13.8 Other obstructive and reflux uropathy
CPT/HCPCS: 36415; 71020-TC; 74176-TC; 80048; 80053; 81003; 81015; 83735; 84100; 84153; 85025; 87086; 99283-25; G0378; J1644

== ENCOUNTER 2017-05-26 15:53 | Emergency (ER) | payer OTHER ==
[2017-05-26 16:03] VITALS: BP 151/75; PULSE 87; TEMP 98.9; BMI 19.5
--- NOTE | 2017-05-26 16:35 | PDOC ---
Attending Attestation - Resident Resident Name: Link Lou - ED Attending Attestation I have performed the following: I have examined & evaluated the patient, The case was reviewed & discussed with the resident, I agree w/resident's findings & plan, Exceptions are as noted - HPI HPI: 05/26/17 16:50 56yo M hx UTI 15 days ago (admitted x 1 week, has barrios catheter since) p/w pain at the urethral meatus. No dysuria, hematuria. Pt requests changing the barrios catheter. Denies f/c, cp, sob, abd pain, n/v/d, LE edema.
--- NOTE | 2017-05-26 17:06 | PDOC ---
History of Present Illness - General Chief Complaint: Urinary Catheter Problem Stated Complaint: URINARY PROBLEM Time Seen by Provider: 05/26/17 16:20 History Source: Patient Exam Limitations: Language Barrier (Nurse used for translation) - History of Present Illness Initial Comments: 05/26/17 17:00 The patient is a 56M with a PMH of DM and HTN who presents to the ED with pain 2 /2 to his barrios catheter. The patient states that he had a UTI 15 days ago and was treated for 1 week and d/c with a barrios catheter after having urinary retention. The barrios is indwelling. He states that today he has had pain at the meatus and believes his barrios needs to be changed. He denies any dysuria, fever , chills, flank pain, hematuria. Past History - Past Medical History Allergies/Adverse Reactions: Allergies Allergy/AdvReac Type Severity Reaction Status Date / Time No Known Allergies Allergy Verified 05/14/17 16:16 Home Medications: Ambulatory Orders Glipizide [Glipizide ER] 2 mg PO DAILY 05/12/17 Ciprofloxacin 500 mg PO BID 10 Days #20 ml 05/19/17 Docusate Sodium [Colace -] 100 mg PO TID capsule 05/19/17 Finasteride [Proscar -] 5 mg PO DAILY #30 tablet 05/19/17 Heparin - 5,000 unit SQ TID vial 05/19/17 Insulin Sliding Scale [Novolog Vial Sliding Scale -] 1 vial SQ ACHS units 05/19 Lisinopril [Prinivil] 10 mg PO DAILY #30 tablet 05/19/17 Polyethylene Glycol 3350 [Miralax 119 gm Btl -] 17 gm PO DAILY bottle 05/19/17 Sennosides [Senna -] 2 tab PO HS tablet 05/19/17 Tamsulosin HCl [Flomax -] 0.4 mg PO BID #60 cap.er.24h 05/19/17 COPD: No Diabetes: Yes HTN: Yes - Immunization History Immunization Up to Date: Yes - Suicide/Smoking/Psychosocial Hx Smoking History: Never smoked Have you smoked in the past 12 months: No Hx Alcohol Use: No Drug/Substance Use Hx: No Substance Use Type: None Hx Substance Use Treatment: No Review of Systems - Review of Systems Able to Perform ROS?: Yes Comments:: 05/26/17 17:06 GENERAL/CONSTITUTIONAL: No fever or chills. No weakness. HEAD, EYES, EARS, NOSE AND THROAT: No change in vision. No ear pain or discharge. No sore throat. GASTROINTESTINAL: No nausea, vomiting, diarrhea, constipation, or abdominal pain. GENITOURINARY: Positive for pain at urethral meatus 2/2 barrios. No dysuria, frequency, hematuria, or change in urination. CARDIOVASCULAR: No chest pain, palpitations, or lightheadedness. RESPIRATORY: No cough, wheezing, shortness of breath, or hemoptysis. MUSCULOSKELETAL: No joint or muscle swelling or pain. No neck or back pain. SKIN: No rash or lesions. NEUROLOGIC: No headache, numbness, tingling, weakness, loss of consciousness, or change in strength/sensation. ENDOCRINE: No increased thirst. No abnormal weight change. HEMATOLOGIC/LYMPHATIC: No anemia, easy bleeding, or history of blood clots. ALLERGIC/IMMUNOLOGIC: No hives or skin allergy. *Physical Exam - Vital Signs Last Vital Signs Temp Pulse Resp BP Pulse Ox 98.9 F 87 18 151/75 99 05/26/17 16:01 05/26/17 16:01 05/26/17 16:01 05/26/17 16:01 05/26/17 16:01 - Physical Exam Comments: 05/26/17 17:09 GENERAL: Well developed, well nourished. Awake and alert. No acute distress. HEENT: Normocephalic, atraumatic. Hearing grossly normal. Moist mucous membranes. PERRLA, EOMI. No conjunctival pallor. Sclera are non-icteric. Oropharynx is clear. NECK: Supple. Full ROM. No JVD. Carotid pulses 2+ and symmetric, without bruits. No thyromegaly. No lymphadenopathy. CARDIOVASCULAR: Regular rate and rhythm. No murmurs, rubs, or gallops. Distal pulses are 2+ and symmetric. PULMONARY: No evidence of respiratory distress. Lungs clear to auscultation bilaterally. No wheezing, rales or rhonchi. ABDOMINAL: Soft. Non-tender. Non-distended. No rebound or guarding. No organomegaly. Normoactive bowel sounds. GENITOURINARY: Tenderness at urethral meatus. Barrios catheter inserted and draining. No CVA tenderness bilaterally. MUSCULOSKELETAL: Normal range of motion at all joints. No bony deformities or tenderness. EXTREMITIES: No cyanosis. No clubbing. No edema. No calf tenderness. SKIN: Warm and dry. Normal capillary refill. No rashes. No jaundice. NEUROLOGICAL: Alert, awake, appropriate. Cranial nerves 2-12 intact. No deficits to light touch and temperature in face, upper extremities and lower extremities. No motor deficits in the in face, upper extremities and lower extremities. Normoreflexic in the upper and lower extremities. Toes are down- going bilaterally. Normal speech. Gait is normal without ataxia. PSYCHIATRIC: Cooperative. Good eye contact. Appropriate mood and affect. Medical Decision Making - Medical Decision Making 05/26/17 17:21 The patient is a 56M with a PMH of HTN and DM who presents to the ED with pain at his urethral meatus 2/2 barrios catheter. Will send UA and UCx and discuss with nurse about changing barrios. 05/26/17 18:04 The patient states that he feels a lot better after having his barrios changed. Pending UA. Will d/c home with PCP and urology f/u. 05/26/17 19:07 UA negative except blood, likely 2/2 to catheterization. Pt ready for d/c with urology f/u. *DC/Admit/Observation/Transfer Diagnosis at time of Disposition: Indwelling Barrios catheter present - Discharge Dispostion Disposition: HOME Condition at time of disposition: Stable Admit: No - Referrals - Patient Instructions Printed Discharge Instructions: How to Care for Your Barrios Catheter -- Male Additional Instructions: Please return to the ER if symptoms persist, worsen, or new symptoms arise. Please follow up with your primary care physician in 2-3 days. Please follow up with your urologist in 1-3 days. Please return to the ER if you have any signs or symptoms of chest pain, shortness of breath, uncontrollable fever, chills, nausea, vomiting, numbness, tingling, or weakness in any part of your body, changes in vision, or slurred speech. Por favor regrese a la mar de emergencias si los sntomas persisten, empeoran o surgen nuevos sntomas. Por favor, shahana un seguimiento con villalobos mdico de atencin primaria en 2-3 blakely. Por favor shahana un seguimiento con villalobos urlogo en 1-3 blakely. Por favor regrese a la mar de emergencia si tiene signos o sntomas de dolor en el pecho, dificultad para respirar, fiebre incontrolable, escalofros, n useas, vmitos, entumecimiento, hormigueo o debilidad en cualquier parte de villalobos cuerpo, cambios en la visin o dificultad para hablar. Print Language: LITHUANIAN - Post Discharge Activity
[2017-05-26 18:32] LABS: URINE APPEARANCE CLEAR; URINE BILIRUBIN NEGATIVE (NEGATIVE); URINE BLOOD 3+ (NEGATIVE); URINE COLOR STRAW; URINE GLUCOSE (UA) NEGATIVE (NEGATIVE); URINE KETONE NEGATIVE (NEGATIVE); URINE NITRITE NEGATIVE (NEGATIVE); URINE PROTEIN NEGATIVE (NEGATIVE); URINE UROBILINOGEN NEGATIVE mg/dL (0.2-1.0)
[2017-05-26 18:55] LABS: URINE LEUK ESTERASE 1+ (NEGATIVE)
[2017-05-26 19:10] LABS: URINE BACTERIA RARE /hpf (NONE SEEN); URINE MUCUS RARE; URINE RBC 83 /hpf (0-3); URINE WBC 6 /hpf (3-5)
[2017-05-26 22:48] LABS: URINE LEUK ESTERASE TRACE (NEGATIVE)
== END 2017-05-26 19:28 | disposition home or self-care (01) ==
LOC: JER 15:53
PROC: 0T9B70Z Drainage of Bladder with Drainage Device, Via Natural or Artificial Opening (ICD-10-PCS; principal; 2017-05-26)
DX: Z97.8 Presence of other specified devices (principal); I10 Essential (primary) hypertension; E11.9 Type 2 diabetes mellitus without complications
CPT/HCPCS: 51702; 81003; 81015; 87086; 99281-25

== ENCOUNTER 2017-06-17 23:41 | Emergency (ER) | payer OTHER ==
[2017-06-18 00:16] VITALS: BP 152/77; PULSE 98; TEMP 98; BMI 22.1
--- NOTE | 2017-06-18 00:23 | PDOC ---
History of Present Illness - General Chief Complaint: Urinary Problem Stated Complaint: CATHETER REMOVED TODAY, UNABLE TO URINATE SINCE 5P Time Seen by Provider: 06/18/17 00:21 - History of Present Illness Initial Comments: 06/18/17 06:32 Had barrios. WAS d/c'd today by urology. HAd been in x 1 month for "prostate infxn ". PResents now with suprapubic abd pain, increasign x hrs associated with no urine output fhx: non-contrib ros: reviewed and otherewise negative o/e uncomfortable non icteric mmm rrr abd-suprapubic fullness and tenderness no cvat no penile/ scrotal lesions barrios placed with 600cc urine output a/p urinary obstruction fley/ leg bag has fu Past History - Past Medical History Allergies/Adverse Reactions: Allergies Allergy/AdvReac Type Severity Reaction Status Date / Time No Known Allergies Allergy Verified 05/14/17 16:16 Home Medications: Ambulatory Orders Ciprofloxacin HCl [Cipro] 500 mg PO Q8H 06/17/17 Lisinopril 10 mg PO DAILY 06/17/17 Tamsulosin HCl [Flomax] 0.4 mg PO DAILY 06/17/17 Finasteride [Proscar -] 5 mg PO DAILY 06/18/17 COPD: No Diabetes: Yes HTN: Yes - Immunization History Immunization Up to Date: Yes - Suicide/Smoking/Psychosocial Hx Smoking History: Never smoked Have you smoked in the past 12 months: No Information on smoking cessation initiated: No Hx Alcohol Use: No Drug/Substance Use Hx: No Substance Use Type: None Hx Substance Use Treatment: No *Physical Exam - Vital Signs Last Vital Signs Temp Pulse Resp BP Pulse Ox 98 F 98 H 18 152/77 100 06/18/17 00:11 06/18/17 00:11 06/18/17 00:11 06/18/17 00:11 06/18/17 00:11 *DC/Admit/Observation/Transfer Diagnosis at time of Disposition: Urinary obstruction - Discharge Dispostion Disposition: HOME Condition at time of disposition: Stable - Referrals - Patient Instructions Printed Discharge Instructions: How to Care for Your Barrios Catheter -- Male - Post Discharge Activity
== END 2017-06-18 00:52 | disposition home or self-care (01) ==
LOC: FER 23:41
PROC: 0T9B70Z Drainage of Bladder with Drainage Device, Via Natural or Artificial Opening (ICD-10-PCS; principal; 2017-06-17)
DX: N13.9 Obstructive and reflux uropathy, unspecified (principal); E11.9 Type 2 diabetes mellitus without complications; I10 Essential (primary) hypertension
CPT/HCPCS: 51702; 99281-25

== ENCOUNTER 2018-01-19 00:22 | Inpatient (IN) | payer OTHER ==
[2018-01-19] MEDS ORDERED: LIDOCAINE HCL 2% JELLY 10 ML CARTRIDGE ONE (02:01)
[2018-01-19 02:52] LABS: BASO % 0.4 % (0-2.0); EOS % 0.7 % (0-4.5); HEMATOCRIT 37.4 % (35.4-49); HEMOGLOBIN 12.7 GM/dL (11.7-16.9); LYMPH % 15.1 % (8-40); MEAN PLT VOLUME 6.8 fl (7.5-11.1); MONO % 4.6 % (3.8-10.2); NEUT % 79.2 % (42.8-82.8); PLATELET COUNT 277 K/MM3 (134-434); RBC 4.25 M/mm3 (4.00-5.60); RDW 14.1 % (11.9-15.9); WHITE BLOOD COUNT 6.6 K/mm3 (4.0-10.0)
--- NOTE | 2018-01-19 02:55 | PDOC ---
Attending Attestation - Resident Resident Name: Messi - ED Attending Attestation I have performed the following: I have examined & evaluated the patient, The case was reviewed & discussed with the resident, I agree w/resident's findings & plan, Exceptions are as noted - Medical Decision Making 01/19/18 02:52 A portion of this note was written by my scribe, under my supervision. Vital Signs Temp Pulse Resp BP Pulse Ox 97.9 F 115 H 22 140/77 100 01/19/18 00:30 01/19/18 00:30 01/19/18 00:30 01/19/18 00:30 01/19/18 00:30 57 year old male with PMH of BPH s/p ?TURP several weeks ago presents with urinary retention since 7 pm. The patient reports that he has been urinating without difficulty until 7 pm, he was unable to urinate. Reported abdominal distension and discomfort and came to the ER. Denies fevers, chills, nausea, vomiting. Marin catheter was placed and karin hematuria was obtained with relief of symptoms. 3 way catheter was placed with irrigation to clear hematuria. Pt sees Dr. Ramirez for urology. When asked about hematuria, he reports since his procedure, he has been having intermittent hematuria but now worsened today. Differential includes hemorrhagic cystitis, prostatitis, malignancy Will need to obtain UA. Bladder irrigation. Labs including Creatinine to r/o renal failure. Admit <Satinder Thomas - Last Filed: 01/19/18 02:52> - HPI HPI: 01/19/18 03:17 The patient is a 57 year old male, with a significant past medical history of BPH s/p possible TURP, who presents to the emergency department with, 6 hours of urinary retention. As per patient, his urinary retention was sudden onset. He reports associated abdominal discomfort and distention at the time of his symptoms. He reports intermittent hematuria since his surgery worsening today. He denies any recent fevers, chills, headache or dizziness. He denies any recent nausea, vomit, diarrhea or constipation. He denies any recent chest pain or shortness of breath. Allergies: NKA Social History: Nonsmoker. Denies EtOH use and recreational drug use. Urologist: Dr. Ramirez - Physicial Exam PE: 01/19/18 03:17 GENERAL: Awake, alert, and fully oriented, in no acute distress HEAD: No signs of trauma ENT: Hearing grossly normal. NECK: Normal ROM. ABDOMEN: Nontender s/p Marin catheter placement. Soft, normoactive bowel sounds. No guarding, no rebound. No masses NEUROLOGICAL: Cranial nerves II through XII grossly intact. Normal speech. SKIN: Warm, Dry, normal turgor, no rashes or lesions noted. <Sam Petersen - Last Filed: 01/19/18 03:17> Attestations - Attestations 01/19/18 03:17 Documentation prepared by Sam Petersen, acting as medical office receptionist assistant for Satinder Thomas MD. <Sam Petersen - Last Filed: 01/19/18 03:17>
[2018-01-19 03:03] LABS: INR 1.07 (0.83-1.09); PROTHROMBIN TIME (PATIENT) 12.1 SEC (9.7-13.0)
[2018-01-19 03:05] LABS: ACTIVATED PTT 26.5 SECONDS (25.2-36.5)
[2018-01-19 03:11] LABS: URINE APPEARANCE TURBID; URINE BILIRUBIN NEGATIVE (<2.0 mg/dL); URINE COLOR RED; URINE GLUCOSE (UA) 1+ (NEGATIVE); URINE KETONE NEGATIVE (NEGATIVE); URINE LEUK ESTERASE NEGATIVE (NEGATIVE); URINE NITRITE NEGATIVE (NEGATIVE); URINE PROTEIN 2+ (NEGATIVE); URINE UROBILINOGEN NEGATIVE mg/dL (0.2-1.0)
[2018-01-19 03:13] LABS: ANION GAP 10 (8-16); BLOOD UREA NITROGEN 17 mg/dL (7-18); CALCIUM 8.9 mg/dL (8.5-10.1); CHLORIDE 99 mmol/L (98-107); CO2 28 mmol/L (21-32); CREATININE 1.3 mg/dL (0.7-1.3); GLUCOSE,RANDOM 224 mg/dL (74-106); POTASSIUM 4.1 mmol/L (3.5-5.1); SODIUM 137 mmol/L (136-145)
--- NOTE | 2018-01-19 03:42 | PDOC ---
History of Present Illness - General Chief Complaint: Urinary Problem Stated Complaint: DYSURIA Time Seen by Provider: 01/19/18 01:38 History Source: Patient, Family Exam Limitations: Language Barrier (Son-in-law provided Turkish translation at pt's request. Declined telephone propeller mechanic service.) - History of Present Illness Initial Comments: 57 y/o male presenting to [facility] ER via private auto complaining of trouble urinating and suprapubic pain since 7pm earlier tonight. Pt has a history of acute urinary retention, diffusely enlarged prostate, s/p unknown type of outpatient laser prostate surgery by Dr. Jean 3 weeks ago. Reports no postop complications until this evening. Endorses blood in urine today prior to start of pain. Past History - Past Medical History Allergies/Adverse Reactions: Allergies Allergy/AdvReac Type Severity Reaction Status Date / Time No Known Allergies Allergy Verified 01/19/18 02:06 Home Medications: Ambulatory Orders Lisinopril 10 mg PO DAILY 06/17/17 Tamsulosin HCl [Flomax] 0.4 mg PO BID 06/17/17 Finasteride [Proscar -] 5 mg PO DAILY 06/18/17 COPD: No Diabetes: Yes HTN: Yes - Immunization History Immunization Up to Date: Yes - Suicide/Smoking/Psychosocial Hx Smoking History: Never smoked Have you smoked in the past 12 months: No Information on smoking cessation initiated: No Hx Alcohol Use: No Drug/Substance Use Hx: No Substance Use Type: None Hx Substance Use Treatment: No Review of Systems - Review of Systems Constitutional: No: Chills, Diaphoresis, Fever Respiratory: No: Shortness of Breath Cardiac (ROS): No: Chest Pain : Yes: See HPI, Hematuria, Pain. No: Burning, Dysuria, Discharge, Flank Pain Musculoskeletal: No: Muscle Pain Integumentary: No: Bruising, Rash Neurological: No: Headache Hematologic/Lymphatic: No: Easy Bleeding, Easy Bruising *Physical Exam - Vital Signs Last Vital Signs Temp Pulse Resp BP Pulse Ox 97.9 F 115 H 22 140/77 100 01/19/18 00:30 01/19/18 00:30 01/19/18 00:30 01/19/18 00:30 01/19/18 00:30 ED Treatment Course - LABORATORY CBC & Chemistry Diagram: 01/20/18 06:25 01/20/18 06:25 - ADDITIONAL ORDERS Additional order review: Laboratory Results 01/19/18 01/19/18 01/19/18 02:53 02:40 02:40 PT with INR 12.10 INR 1.07 PTT (Actin FS) 26.5 Sodium 137 Potassium 4.1 Chloride 99 Carbon Dioxide 28 Anion Gap 10 BUN 17 Creatinine 1.3 Creat Clearance w eGFR 56.90 Random Glucose 224 H D Calcium 8.9 Urine Color Red Urine Appearance Turbid Urine pH 7.0 Ur Specific [place] 1.015 Urine Protein 2+ H Urine Glucose (UA) 1+ H Urine Ketones Negative Urine Blood 3+ H Urine Nitrite Negative Urine Bilirubin Negative Urine Urobilinogen Negative Ur Leukocyte Esterase Negative 01/19/18 02:53 RBC 4.25 MCV 88.0 MCHC 34.0 RDW 14.1 MPV 6.8 L Neutrophils % 79.2 D Lymphocytes % 15.1 D Monocytes % 4.6 Eosinophils % 0.7 Basophils % 0.4 Medical Decision Making - Medical Decision Making *Reviewed nursing notes and prior visit documentation. 57 y/o male s/p presumably outpatient TARP 3 weeks ago complaining of hematuria and painful acute urinary retention. Ordered CBC, BMP, PT, PTT, T/S, UA. Insert three way barrios catheter for urinary retention and complete bladder irrigation. Gross hematuria noted with insertion of barrios; low suspicion for traumatic insertion. Ordered CBI. Labs unremarkable for derangement. Pt reports return of suprapubic pain and that the barrios has stopped draining. Clots cleared from the barrios with syringe. Pt reports pain improved. To continue CBI. Pt admitted to hospitalist service with urology consultation placed for this AM. *DC/Admit/Observation/Transfer Diagnosis at time of Disposition: Urinary retention, Gross hematuria - Discharge Dispostion Condition at time of disposition: Fair Decision to Admit order: Yes - Referrals - Patient Instructions - Post Discharge Activity
--- NOTE | 2018-01-19 04:56 | PN ---
Teaching Attending Note Name of Resident: Ajit Obrien ATTENDING PHYSICIAN STATEMENT I saw and evaluated the patient. I reviewed the resident's note and discussed the case with the resident. I agree with the resident's findings and plan as documented. SUBJECTIVE: Patient is a 57 year old woman with PMH of hypertension, ?prostatitis, NIDDM, BPH s/p TURP on ?12/24/17, presents with urinary retention since 7 pm. The patient reports that he has been urinating without difficulty until 7 pm, when he was unable to urinate. Has abdominal distension and discomfort, but denies fevers, chills, nausea, or vomiting. Barrios catheter was placed and karin hematuria was obtained with relief of symptoms. A three-way catheter was placed with irrigation to clear hematuria. He reports that since his procedure, he has been having intermittent hematuria but now worsened today. He has had several courses of Cipro for UTI/?prostatitis in the past few months. His urologist is Dr. Ramirez. He has a past history of chronic recurrent urinary retention with home use of indwelling barrios catheter. OBJECTIVE: Alert Vital Signs Period Temp Pulse Resp BP Sys/Garvin Pulse Ox Last 24 Hr 97.9 F 115 22 140/77 100 HEENT: No Jaundice, eye redness or discharge, PERRLA, EOMI. Normocephalic, atraumatic. External ears are normal and hearing is grossly intact. No nasal discharge. Neck: Supple, nontender. No palpable adenopathy or thyromegaly. No JVD Chest: Good effort. Clear to auscultation and percussion. Heart: Regular. No S3, rub or murmur Abdomen: Not distended, soft, mild suprapubic tenderness and no HSM. No rebound or guarding. Normoactive bowel sounds. Ext: Peripheral pulses intact. No leg edema. Barrios in place. Skin: Warm and dry. No petechiae, rash or ecchymosis. Neuro: Alert. Oriented x3. CN 2-12 grossly intact. Sensation grossly intact in all four extremities and DTR are symmetric. Current Medications Generic Name Dose Route Start Last Admin Trade Name Freq PRN Reason Stop Dose Admin Insulin Aspart 0 vial 01/19/18 07:00 Novolog Vial Sliding Scale - SQ ACHS [facility] Protocol Home Medications Medication Instructions Recorded Ciprofloxacin HCl [Cipro] 500 mg PO Q8H 06/17/17 Lisinopril 10 mg PO DAILY 06/17/17 Tamsulosin HCl [Flomax] 0.4 mg PO DAILY 06/17/17 Finasteride [Proscar -] 5 mg PO DAILY 06/18/17 ASSESSMENT AND PLAN: 1. Urinary retention with hematuria - Known to have prostate disease. Post surgery inflammation and blood clots may be responsible for recurrence of outlet obstruction post surgery. Hematuria likely due to bleeding from surgical site and possibly rapid decompression of bladder after barrios insertion. There is no evidence of UTI at this time. Will withhold antibiotics and monitor closely. Monitor hematocrit. Continue bladder irrigation and consult urology. 2. DM - For now, we will hold the home diabetes drugs and implement sliding scale insulin regimen. Provide comprehensive diabetes care with patient teaching and counseling about the importance of euglycemia, eye care and foot care. 3. DVT prophylaxis - SCD, TEDs 4. Advance directives - Full code
--- NOTE | 2018-01-19 05:21 | HP ---
CHIEF COMPLAINT: unable to urinate PCP: HISTORY OF PRESENT ILLNESS: 57 yo male with PMH BPH (s/p recent TURP?), HTN, NIDDM, presented to the ED with complaint that he was unable to urinate suddenly beginning at 7 pm. He states that he had a prostate procedure (TURP?) done by Dr. Ramirez on 12/24. Since then he has had mild intermittent hematuria. He last saw Dr. Ramirez on and was told at that time that everything looked good. He says that today he noticed increased hematuria, more than he has had since the procedure, and then was unable to urinate at 7pm. He states that he also had some lower abdominal pain and distention. Denies fevers, chills, SOB, chest pain, n/v/d, or any recent urinary symptoms other than the previously mentioned intermittent hematuria. 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 ER course was notable for: (1) Barrios placement with drainage of karin hematuria with clots, (2) UA: 2+ protein, 1+ glucose, 3+ blood, RBC > 100 (3) CBI begun and urology consulted Recent Travel: none PAST MEDICAL HISTORY: BPH, HTN, NIDDM PAST SURGICAL HISTORY: TURP? 12/24/17 Social History: Smoking: none Alcohol: none Drugs: none Family History: Allergies No Known Allergies Allergy (Verified 01/19/18 02:06) HOME MEDICATIONS: Home Medications Medication Instructions Recorded Lisinopril 10 mg PO DAILY 06/17/17 Tamsulosin HCl [Flomax] 0.4 mg PO BID 06/17/17 Finasteride [Proscar -] 5 mg PO DAILY 06/18/17 REVIEW OF SYSTEMS CONSTITUTIONAL: Absent: fever, chills, diaphoresis, generalized weakness, malaise, loss of appetite, weight change HEENT: Absent: rhinorrhea, nasal congestion, throat pain, throat swelling, difficulty swallowing, mouth swelling, ear pain, eye pain, visual changes CARDIOVASCULAR: Absent: chest pain, syncope, palpitations, irregular heart rate, lightheadedness , peripheral edema RESPIRATORY: Absent: cough, shortness of breath, dyspnea with exertion, orthopnea, wheezing, stridor, hemoptysis GASTROINTESTINAL: abdominal pain, abdominal distension (resolved now), hematuria , Absent: nausea, vomiting, diarrhea, constipation, melena, hematochezia GENITOURINARY: dysuria, Absent: frequency, urgency, hesitancy,flank pain, genital pain MUSCULOSKELETAL: Absent: myalgia, arthralgia, joint swelling, back pain, neck pain SKIN: Absent: rash, itching, pallor HEMATOLOGIC/IMMUNOLOGIC: Absent: easy bleeding, easy bruising, lymphadenopathy, frequent infections ENDOCRINE: Absent: unexplained weight gain, unexplained weight loss, heat intolerance, cold intolerance NEUROLOGIC: Absent: headache, focal weakness or paresthesias, dizziness, unsteady gait, seizure, mental status changes, bladder or bowel incontinence PSYCHIATRIC: Absent: anxiety, depression, suicidal or homicidal ideation, hallucinations. PHYSICAL EXAMINATION Vital Signs - 24 hr 01/19/18 00:30 Temperature 97.9 F Pulse Rate 115 H Respiratory 22 Rate Blood Pressure 140/77 O2 Sat by Pulse 100 Oximetry (%) GENERAL: A&O, no acute distress HEAD: Normocephalic, atraumatic. EYES: PERRL, EOMI, no scleral icterus EARS, NOSE, THROAT: oropharynx clear without exudates. Moist mucous membranes. NECK: supple without lymphadenopathy LUNGS: CTA b/l, no crackles or wheezes HEART: Regular rate and rhythm, normal S1 and S2 without murmur, rub or gallop. ABDOMEN: Soft, nontender to palpation with the exception of deep palpation in the suprapubic region, normoactive bowel sounds : barrios in place with CBI draining blood tinged urine and fluid with occasional clots MUSCULOSKELETAL: No bony deformities or tenderness. No CVA tenderness. UPPER EXTREMITIES: 2+ pulses, warm, well-perfused. No cyanosis. No clubbing. No peripheral edema. LOWER EXTREMITIES: 2+ pulses, warm, well-perfused. No calf tenderness. No peripheral edema. NEUROLOGICAL: Cranial nerves II-XII grossly intact. Normal speech. PSYCHIATRIC: Cooperative. Good eye contact. Appropriate mood and affect. SKIN: Warm, dry, normal turgor, no rashes or lesions noted Laboratory Results - last 24 hr 01/19/18 01/19/18 01/19/18 02:40 02:40 02:53 WBC RBC Hgb Hct MCV MCH MCHC RDW Plt Count MPV Absolute Neuts (auto) Neutrophils % Lymphocytes % Monocytes % Eosinophils % Basophils % Nucleated RBC % PT with INR 12.10 INR 1.07 PTT (Actin FS) 26.5 Sodium 137 Potassium 4.1 Chloride 99 Carbon Dioxide 28 Anion Gap 10 BUN 17 Creatinine 1.3 Creat Clearance w eGFR 56.90 Random Glucose 224 H D Calcium 8.9 Urine Color Red Urine Appearance Turbid Urine pH 7.0 Ur Specific [place] 1.015 Urine Protein 2+ H Urine Glucose (UA) 1+ H Urine Ketones Negative Urine Blood 3+ H Urine Nitrite Negative Urine Bilirubin Negative Urine Urobilinogen Negative Ur Leukocyte Esterase Negative Urine WBC (Auto) No Result Required. Urine RBC (Auto) >100 01/19/18 02:53 WBC 6.6 RBC 4.25 Hgb 12.7 Hct 37.4 MCV 88.0 MCH 30.0 MCHC 34.0 RDW 14.1 Plt Count 277 MPV 6.8 L Absolute Neuts (auto) 5.3 Neutrophils % 79.2 D Lymphocytes % 15.1 D Monocytes % 4.6 Eosinophils % 0.7 Basophils % 0.4 Nucleated RBC % 0 PT with INR INR PTT (Actin FS) Sodium Potassium Chloride Carbon Dioxide Anion Gap BUN Creatinine Creat Clearance w eGFR Random Glucose Calcium Urine Color Urine Appearance Urine pH Ur Specific [place] Urine Protein Urine Glucose (UA) Urine Ketones Urine Blood Urine Nitrite Urine Bilirubin Urine Urobilinogen Ur Leukocyte Esterase Urine WBC (Auto) Urine RBC (Auto) ASSESSMENT/PLAN: 57 yo male with PMH BPH (s/p recent TURP?), HTN, NIDDM admitted for observation for evaluation of acute onset urinary retention associated with increased hematuria Urinary retention with Hematuria -Pt status post TURP? with intermittent hematuria, cause of acute increasing hematuria -Acute urinary retention could possibly be cause by clot leading to blockage of bladder output -UA: 3+ blood, RBCs >100 -Retention currently relieved by barrios catheter -Continuous bladder irrigation currently in place -Urology consult ordered, will await recommendations -Repeat CBC in AM to trend H/H HTN -Pt home med 10 mg PO lisinopril -2+ proteinuria and DM -will increase to 20 mg PO BID NIDDM -Random glucose 224 -BGMs ACHS -Insulin sliding scale for glycemic control, adjust as necessary DVT Prophylaxis -Will await heparin until Urology recommendation as pt with gross hematuria and clots presently FEN -Fluids: none required at this time -Electrolytes: No electrolyte abnormalities, BMP in AM -Nutrition: Diabetic diet Disposition Observation Visit type - Emergency Visit Emergency Visit: Yes ED Registration Date: 01/19/18 Care time: The patient presented to the Emergency Department on the above date and was hospitalized for further evaluation of their emergent condition. - New Patient This patient is new to me today: Yes Date on this admission: 01/19/18 - Critical Care Critical Care patient: No Hospitalist Screening - Colonoscopy Questionnaire Colonoscopy Questionnaire: Colonoscopy Questionnaire - Patient: 50 - 75 years old and never had a screening colonoscopy: Unknown History of colon or rectal polyps, or CA: Unknown History of IBD, Crohn's disease or UC: Unknown History of abdominal radiation therapy as a child: Unknown - Relative: 1 with colon or rectal CA, or polyps at age 60 or younger: Unknown Colon or rectal CA diagnosed at age 45 or younger: Unknown Multiple relatives with colon or rectal CA: Unknown - Outcome: Screening Result: Negative Screen
[2018-01-19] MEDS: INSULIN SLIDING SCALE (NOVOLOG) 1 VIAL SQ SCH ×4 (06:55→22:35)
[2018-01-19] MEDS ORDERED: INSULIN (NOVOLOG) ASPART 100 UNITS/ML 10ML VIAL ONE ×2 (07:01→22:31)
[2018-01-19 09:12] LABS: HEMATOCRIT 37.7 % (35.4-49); HEMOGLOBIN 12.7 GM/dL (11.7-16.9); MCH 29.7 pg (25.7-33.7); MCHC 33.6 g/dl (32.0-35.9); MEAN CELL VOLUME 88.2 fl (80-96); PLATELET COUNT 274 K/MM3 (134-434); RBC 4.28 M/mm3 (4.00-5.60); RDW 14.1 % (11.9-15.9); WHITE BLOOD COUNT 6.8 K/mm3 (4.0-10.0)
[2018-01-19 09:50] LABS: ANION GAP 9 (8-16); BLOOD UREA NITROGEN 14 mg/dL (7-18); CALCIUM 8.9 mg/dL (8.5-10.1); CHLORIDE 103 mmol/L (98-107); CO2 28 mmol/L (21-32); CREATININE 1.2 mg/dL (0.7-1.3); GLUCOSE,RANDOM 143 mg/dL (74-106); MAGNESIUM 2.1 mg/dL (1.8-2.4); PHOSPHOROUS 3.8 mg/dL (2.5-4.9); POTASSIUM 4.1 mmol/L (3.5-5.1); SODIUM 140 mmol/L (136-145)
[2018-01-19] MEDS ORDERED: LISINOPRIL 20 MG TABLET (FP) PO SCH (10:00)
[2018-01-19] MEDS: TAMSULOSIN HCL 0.4 MG CAP.ER.24H (FP) PO SCH ×2 (10:05→22:35)
[2018-01-19] MEDS: FINASTERIDE 5 MG TABLET (FP) PO SCH (10:05)
--- NOTE | 2018-01-19 18:12 | CON.GU ---
Consult - History of Present Illness History of Present Illness: 57 yo male with BPH s/p greenlight laser vaporization of prostate 3 wks ago, now with gross hematuria and clot retention. No flank pain, No fever/chills - Past Medical History Cardio/Vascular: Yes: HTN Endocrine: Yes: Diabetes Mellitus - Alcohol/Substance Use Hx Alcohol Use: No - Smoking History Smoking history: Never smoked Have you smoked in the past 12 months: No Home Medications - Allergies Allergies/Adverse Reactions: Allergies Allergy/AdvReac Type Severity Reaction Status Date / Time No Known Allergies Allergy Verified 01/19/18 02:06 - Home Medications Home Medications: Ambulatory Orders Lisinopril 10 mg PO DAILY 06/17/17 Tamsulosin HCl [Flomax] 0.4 mg PO BID 06/17/17 Finasteride [Proscar -] 5 mg PO DAILY 06/18/17 Review of Systems - Review of Systems Genitourinary: reports: Hematuria Physical Exam- Vital Signs: Vital Signs Temperature 98.5 F 01/19/18 15:50 Pulse Rate 65 01/19/18 15:50 Respiratory Rate 20 01/19/18 15:50 Blood Pressure 135/66 01/19/18 15:50 O2 Sat by Pulse Oximetry (%) 99 01/19/18 15:50 Renal/: Yes: Marin Present, Hematuria Labs: CBC, BMP 01/19/18 08:26 01/19/18 08:26 Problem List - Problems (1) Gross hematuria Assessment/Plan: cont CBI Code(s): R31.0 - GROSS HEMATURIA
[2018-01-19] MEDS ORDERED: TAMSULOSIN HCL 0.4 MG CAP.ER.24H (FP) ONE (22:29)
[2018-01-19] MEDS ORDERED: INSULIN (LEVEMIR) 100 UNITS/ML UNITS SQ ONE (22:30)
[2018-01-19] MEDS: INSULIN (LEVEMIR) 100 UNITS/ML UNITS SQ SCH (22:35)
[2018-01-20 07:26] LABS: BASO % 0.7 % (0-2.0); EOS % 1.4 % (0-4.5); HEMOGLOBIN 12.7 GM/dL (11.7-16.9); LYMPH % 27.5 % (8-40); MCH 29.4 pg (25.7-33.7); MCHC 33.5 g/dl (32.0-35.9); MEAN CELL VOLUME 87.7 fl (80-96); MEAN PLT VOLUME 7.2 fl (7.5-11.1); MONO % 6.2 % (3.8-10.2); NEUT % 64.2 % (42.8-82.8); PLATELET COUNT 270 K/MM3 (134-434); RBC 4.33 M/mm3 (4.00-5.60); RDW 14.5 % (11.9-15.9)
[2018-01-20] MEDS: INSULIN SLIDING SCALE (NOVOLOG) 1 VIAL SQ SCH ×4 (07:53→21:48)
[2018-01-20 08:06] LABS: ANION GAP 7 (8-16); BLOOD UREA NITROGEN 14 mg/dL (7-18); CALCIUM 8.5 mg/dL (8.5-10.1); CHLORIDE 103 mmol/L (98-107); CO2 31 mmol/L (21-32); CREATININE 1.1 mg/dL (0.7-1.3); GLUCOSE,RANDOM 103 mg/dL (74-106); POTASSIUM 4.3 mmol/L (3.5-5.1); SODIUM 141 mmol/L (136-145)
[2018-01-20] MEDS: FINASTERIDE 5 MG TABLET (FP) PO SCH (10:54)
[2018-01-20] MEDS: TAMSULOSIN HCL 0.4 MG CAP.ER.24H (FP) PO SCH ×2 (10:54→21:47)
[2018-01-20] MEDS: LISINOPRIL 20 MG TABLET (FP) PO SCH (10:54)
--- NOTE | 2018-01-20 11:03 | PN ---
Progress Note (short form) - Note Progress Note: urine light pink on CBI Abd soft cont CBI today Would stop CBI in am tomoro Problem List - Problems (1) Gross hematuria Code(s): R31.0 - GROSS HEMATURIA
[2018-01-20] MEDS ORDERED: INSULIN (NOVOLOG) ASPART 100 UNITS/ML 10ML VIAL ONE (11:35)
--- NOTE | 2018-01-20 13:15 | EKG ---
Test Reason : Blood Pressure : / mmHG Vent. Rate : 066 BPM Atrial Rate : 066 BPM P-R Int : 170 ms QRS Dur : 076 ms QT Int : 396 ms P-R-T Axes : 048 012 041 degrees QTc Int : 415 ms NORMAL SINUS RHYTHM NORMAL ECG NO PREVIOUS ECGS AVAILABLE Confirmed by Jerome Harrison MD ([id number]) on 01/20/2018 1:14:47 PM Referred By: Confirmed By:Jerome Harrison MD
--- NOTE | 2018-01-20 15:18 | PN ---
Physical Exam: SUBJECTIVE: Patient seen and examined. States no further lower pubic pain. No fever, chills. OBJECTIVE: Vital Signs Period Temp Pulse Resp BP Sys/Garvin Pulse Ox Last 24 Hr 98.3 F-98.6 F 64-84 16-20 116-140/65-89 98-100 PE Neuro: alert, awake, cn 2-12 intact Pulm: CTAB CV: s1 s2 rrr no mrg Abd: s nt nd + bs : hematuria, blood tinged, barrios tube clearing, no clots Ext: no le edema Laboratory Results - last 24 hr 01/19/18 01/19/18 01/20/18 16:26 22:20 06:25 WBC 8.0 RBC 4.33 Hgb 12.7 Hct 38.0 MCV 87.7 MCH 29.4 MCHC 33.5 RDW 14.5 Plt Count 270 MPV 7.2 L Absolute Neuts (auto) 5.1 Neutrophils % 64.2 Lymphocytes % 27.5 D Monocytes % 6.2 Eosinophils % 1.4 D Basophils % 0.7 Nucleated RBC % 0 Sodium Potassium Chloride Carbon Dioxide Anion Gap BUN Creatinine Creat Clearance w eGFR POC Glucometer 144.90460 279.00706 Random Glucose Hemoglobin A1c % Calcium 01/20/18 01/20/18 01/20/18 06:25 06:25 07:51 WBC RBC Hgb Hct MCV MCH MCHC RDW Plt Count MPV Absolute Neuts (auto) Neutrophils % Lymphocytes % Monocytes % Eosinophils % Basophils % Nucleated RBC % Sodium 141 Potassium 4.3 Chloride 103 Carbon Dioxide 31 Anion Gap 7 L BUN 14 Creatinine 1.1 Creat Clearance w eGFR > 60 POC Glucometer 142.78213 Random Glucose 103 D Hemoglobin A1c % 7.8 H Calcium 8.5 Active Medications Generic Name Dose Route Start Last Admin Trade Name Freq PRN Reason Stop Dose Admin Finasteride 5 mg 01/19/18 10:00 01/20/18 10:54 Proscar - PO 5 mg DAILY NED Administration Insulin Aspart 0 vial 01/19/18 07:00 01/20/18 12:02 Novolog Vial Sliding Scale - SQ 2 unit ACHS NED Administration Protocol Insulin Detemir 8 units 01/19/18 22:00 01/19/18 22:35 Levemir Vial SQ 8 units HS NED Administration Lisinopril 20 mg 01/20/18 10:00 01/20/18 10:54 Prinivil PO 20 mg DAILY NED Administration Tamsulosin HCl 0.4 mg 01/19/18 10:00 01/20/18 10:54 Flomax - PO 0.4 mg BID NED Administration Assessment: 57 year old male with PMH BPH (s/p recent greenlight laser vaporization of prostate 3 weeks ago, HTN, DM II, admitted with hematuria and urinary retention. Plan: 1. Urinary retention with Hematuria - Cont CBI - Stop tomorrow - Flomax - Urology following 2. HTN - Cont increased dose lisinopril 20mg qday 3. DM II - ISS, BGM ACHS 4. DVT ppx - hold d/t above Visit type - Emergency Visit Emergency Visit: Yes ED Registration Date: 01/19/18 Care time: The patient presented to the Emergency Department on the above date and was hospitalized for further evaluation of their emergent condition. - New Patient This patient is new to me today: Yes Date on this admission: 01/20/18 - Critical Care Critical Care patient: No - Discharge Referral Referred to [facility] Med P.C.: No
[2018-01-20 15:48] VITALS: BMI 28.0
[2018-01-20] MEDS: INSULIN (LEVEMIR) 100 UNITS/ML UNITS SQ SCH (21:48)
[2018-01-21] MEDS: INSULIN SLIDING SCALE (NOVOLOG) 1 VIAL SQ SCH ×4 (06:11→21:19)
--- NOTE | 2018-01-21 10:16 | PN ---
Physical Exam: SUBJECTIVE: Patient seen and examined. He has no complaints. Urine is light pink. OBJECTIVE: Vital Signs Period Temp Pulse Resp BP Sys/Garvin Pulse Ox Last 24 Hr 97.8 F-98.7 F 65-89 16-20 114-128/63-78 98-100 GENERAL: The patient is awake, alert, and fully oriented, in no acute distress. LUNGS: Breath sounds equal, clear to auscultation bilaterally, no wheezes, no crackles, no accessory muscle use. HEART: Regular rate and rhythm, S1, S2 without murmur, rub or gallop. ABDOMEN: Soft, nontender, nondistended, normoactive bowel sounds, no guarding, no rebound, no hepatosplenomegaly, no masses. EXTREMITIES: 2+ pulses, warm, well-perfused, no edema. Laboratory Results - last 24 hr 01/20/18 01/20/18 01/20/18 11:27 18:00 21:45 POC Glucometer 189.76169 268 212 01/21/18 06:11 POC Glucometer 126 Active Medications Generic Name Dose Route Start Last Admin Trade Name Harry PRN Reason Stop Dose Admin Finasteride 5 mg 01/19/18 10:00 01/20/18 10:54 Proscar - PO 5 mg DAILY NED Administration Insulin Aspart 0 vial 01/19/18 07:00 01/21/18 06:11 Novolog Vial Sliding Scale - SQ Not Given [facility] Protocol Insulin Detemir 8 units 01/19/18 22:00 01/20/18 21:48 Levemir Vial SQ 8 units HS NED Administration Lisinopril 20 mg 01/20/18 10:00 01/20/18 10:54 Prinivil PO 20 mg DAILY NED Administration Tamsulosin HCl 0.4 mg 01/19/18 10:00 01/20/18 21:47 Flomax - PO 0.4 mg BID NED Administration ASSESSMENT/PLAN: This is a 57 year old man with a history of BPH, recent greenlight vaporization of prostate, HTN, type 2 DM who presented to the ED with hematuria and difficulty urinating. 1. Hematuria with urinary retention secondary to clots with BPH s/p greenlight vaporization 3 weeks ago - Plan to discontinue CBI today - Continue Flomax, Proscar - Urology follow up 2. HTN - Continue Lisinopril 3. Type 2 DM - Continue Levemir, Novolog sliding scale Visit type - Emergency Visit Emergency Visit: Yes ED Registration Date: 01/19/18 Care time: The patient presented to the Emergency Department on the above date and was hospitalized for further evaluation of their emergent condition. - New Patient This patient is new to me today: Yes Date on this admission: 01/21/18 - Critical Care Critical Care patient: No - Discharge Referral Referred to [facility] Med P.C.: No
[2018-01-21] MEDS: TAMSULOSIN HCL 0.4 MG CAP.ER.24H (FP) PO SCH ×2 (11:41→21:19)
[2018-01-21] MEDS: FINASTERIDE 5 MG TABLET (FP) PO SCH (11:41)
[2018-01-21] MEDS: LISINOPRIL 20 MG TABLET (FP) PO SCH (11:41)
[2018-01-21] MEDS ORDERED: PT OWN MED DRAWER 7, Y5N ONE (17:12)
[2018-01-21] MEDS: INSULIN (LEVEMIR) 100 UNITS/ML UNITS SQ SCH (21:19)
[2018-01-22] MEDS: INSULIN SLIDING SCALE (NOVOLOG) 1 VIAL SQ SCH ×3 (06:40→16:23)
[2018-01-22 08:07] LABS: HEMATOCRIT 36.2 % (35.4-49); HEMOGLOBIN 12.2 GM/dL (11.7-16.9); MCH 29.6 pg (25.7-33.7); MCHC 33.7 g/dl (32.0-35.9); MEAN CELL VOLUME 87.8 fl (80-96); PLATELET COUNT 266 K/MM3 (134-434); RBC 4.12 M/mm3 (4.00-5.60); RDW 14.4 % (11.9-15.9); WHITE BLOOD COUNT 5.3 K/mm3 (4.0-10.0)
[2018-01-22 08:35] LABS: BLOOD UREA NITROGEN 16 mg/dL (7-18); CALCIUM 8.7 mg/dL (8.5-10.1); CO2 27 mmol/L (21-32); GLUCOSE,RANDOM 138 mg/dL (74-106)
[2018-01-22 08:40] LABS: ANION GAP 11 MMOL/L (8-16); CHLORIDE 102 mmol/L (98-107); POTASSIUM 4.1 mmol/L (3.5-5.1); SODIUM 140 mmol/L (136-145)
[2018-01-22] MEDS: FINASTERIDE 5 MG TABLET (FP) PO SCH (10:17)
[2018-01-22] MEDS: LISINOPRIL 20 MG TABLET (FP) PO SCH (10:17)
[2018-01-22] MEDS: TAMSULOSIN HCL 0.4 MG CAP.ER.24H (FP) PO SCH (10:17)
--- NOTE | 2018-01-22 11:30 | PN ---
Physical Exam: SUBJECTIVE: Patient seen and examined at the bedside. Feels well, in no acute distress. OBJECTIVE: barrios with yellow clear urine, no clots. discussed with dr hernandez: discontinue barrios, voiding trail today,if no retention, can be discharged with follow up in 2 weeks will need note to return to work Vital Signs Period Temp Pulse Resp BP Sys/Garvin Pulse Ox Last 24 Hr 98.2 F-98.6 F 75-80 16-20 116-120/58-74 100 GENERAL: The patient is awake, alert, and fully oriented, in no acute distress. HEAD: Normal with no signs of trauma. EYES: PERRL, extraocular movements intact, sclera anicteric, conjunctiva clear. No ptosis. ENT: Ears normal, nares patent, oropharynx clear without exudates, moist mucous membranes. NECK: Trachea midline, full range of motion, supple. ABDOMEN: Soft, nontender, nondistended, normoactive bowel sounds, no guarding, no rebound, no hepatosplenomegaly, no masses. EXTREMITIES: 2+ pulses, warm, well-perfused, no edema. NEUROLOGICAL: Cranial nerves II through XII grossly intact. Normal speech, gait not observed. PSYCH: Normal mood, normal affect. SKIN: Warm, dry, normal turgor, no rashes or lesions noted Laboratory Results - last 24 hr 01/21/18 01/21/18 01/21/18 12:19 17:34 21:15 WBC RBC Hgb Hct MCV MCH MCHC RDW Plt Count MPV Sodium Potassium Chloride Carbon Dioxide Anion Gap BUN Creatinine Creat Clearance w eGFR POC Glucometer 212 143 188 Random Glucose Calcium 01/22/18 01/22/18 01/22/18 06:39 07:00 07:00 WBC 5.3 RBC 4.12 Hgb 12.2 Hct 36.2 MCV 87.8 MCH 29.6 MCHC 33.7 RDW 14.4 Plt Count 266 MPV 7.0 L Sodium 140 Potassium 4.1 Chloride 102 Carbon Dioxide 27 Anion Gap 11 BUN 16 Creatinine 1.0 Creat Clearance w eGFR > 60 POC Glucometer 133 Random Glucose 138 H D Calcium 8.7 Active Medications Generic Name Dose Route Start Last Admin Trade Name Freq PRN Reason Stop Dose Admin Finasteride 5 mg 01/19/18 10:00 01/22/18 10:17 Proscar - PO 5 mg DAILY NED Administration Insulin Aspart 0 vial 01/19/18 07:00 01/22/18 06:40 Novolog Vial Sliding Scale - SQ Not Given [facility] Protocol Insulin Detemir 8 units 01/19/18 22:00 01/21/18 21:19 Levemir Vial SQ 8 units HS NED Administration Lisinopril 20 mg 01/20/18 10:00 01/22/18 10:17 Prinivil PO 20 mg DAILY NED Administration Tamsulosin HCl 0.4 mg 01/19/18 10:00 01/22/18 10:17 Flomax - PO 0.4 mg BID NED Administration ASSESSMENT/PLAN:
--- NOTE | 2018-01-22 15:03 | DS ---
Physical Exam: SUBJECTIVE: Patient seen and examined OBJECTIVE: Vital Signs Period Temp Pulse Resp BP Sys/Garvin Pulse Ox Last 24 Hr 98.2 F-99 F 75-91 16-20 116-124/58-74 PHYSICAL EXAM GENERAL: The patient is awake, alert, and fully oriented, in no acute distress. HEAD: Normal with no signs of trauma. EYES: PERRL, extraocular movements intact, sclera anicteric, conjunctiva clear. ENT: Ears normal, nares patent, oropharynx clear without exudates, moist mucous membranes. NECK: Trachea midline, full range of motion, supple. LUNGS: Breath sounds equal, clear to auscultation bilaterally, no wheezes, no crackles, no accessory muscle use. HEART: Regular rate and rhythm, S1, S2 without murmur, rub or gallop. ABDOMEN: Soft, nontender, nondistended, normoactive bowel sounds, no guarding, no rebound, no hepatosplenomegaly, no masses. EXTREMITIES: 2+ pulses, warm, well-perfused, no edema. NEUROLOGICAL: Cranial nerves II through XII grossly intact. Normal speech, gait not observed. PSYCH: Normal mood, normal affect. SKIN: Warm, dry, normal turgor, no rashes or lesions noted. LABS Laboratory Results - last 24 hr 01/21/18 01/21/18 01/22/18 17:34 21:15 06:39 WBC RBC Hgb Hct MCV MCH MCHC RDW Plt Count MPV Sodium Potassium Chloride Carbon Dioxide Anion Gap BUN Creatinine Creat Clearance w eGFR POC Glucometer 143 188 133 Random Glucose Calcium 01/22/18 01/22/18 01/22/18 07:00 07:00 11:32 WBC 5.3 RBC 4.12 Hgb 12.2 Hct 36.2 MCV 87.8 MCH 29.6 MCHC 33.7 RDW 14.4 Plt Count 266 MPV 7.0 L Sodium 140 Potassium 4.1 Chloride 102 Carbon Dioxide 27 Anion Gap 11 BUN 16 Creatinine 1.0 Creat Clearance w eGFR > 60 POC Glucometer 202 Random Glucose 138 H D Calcium 8.7 HOSPITAL COURSE: Date of Admission:01/19/18 Date of Discharge: 01/22/18 Discharge Summary Reason For Visit: HEMATURIA;RETENTION OF URINE Current Active Problems Gross hematuria (Acute) Urinary retention (Acute) Condition: Improved - Instructions Diet, Activity, Other Instructions: Mr. Austen Arzate: Please continue all your home medications once your are discharged. You were admitted for urinary retention and we irrigated your bladder and placed a barrios catheter. Your barrios catheter has been removed and you hare having no difficulty urinating and your bladder scan does not show that you are retaining urine. Please see Dr. Ramirez in 2 weeks. Please call him with an appointment. Return to the ER if you have any problems urinating or if you see clots or your urine has blood. ALCIDES [facility] @ [facility] [phone] Referrals: Dashawn Ramirez MD., MD [Primary Care Provider] - 2 Weeks Disposition: HOME - Home Medications Comprehensive Discharge Medication List: Ambulatory Orders Lisinopril 10 mg PO DAILY 06/17/17 Tamsulosin HCl [Flomax] 0.4 mg PO BID 06/17/17 Finasteride [Proscar -] 5 mg PO DAILY 06/18/17 Lisinopril [Prinivil] 20 mg PO DAILY tablet 01/22/18 - Discharge Referral Referred to [facility] No
[2018-01-22 17:01] VITALS: BP 125/70; PULSE 80; TEMP 98.1
== END 2018-01-22 18:20 | disposition home or self-care (01) | DRG 813 ==
LOC: JER 00:22 → JERBED 03:42 → OBSVTOIN 16:00 → J8W 01-20 13:19
PROVIDERS: ADMIT Internal Medicine; ATTEND Nurse Practitioner Family
PROC: 3C1ZX8Z Irrigation of Indwelling Device using Irrigating Substance, External Approach (ICD-10-PCS; principal; 2018-01-19)
DX: N99.820 Postprocedural hemorrhage of a genitourinary system organ or structure following a genitourinary system procedure (principal); N40.1 Benign prostatic hyperplasia with lower urinary tract symptoms; I10 Essential (primary) hypertension; E11.9 Type 2 diabetes mellitus without complications; R33.8 Other retention of urine; R31.0 Gross hematuria
CPT/HCPCS: 36415; 71045-TC-FY; 80048; 81003; 81015; 82962; 83036; 83735; 84100; 85025; 85027; 85610; 85730; 86850; 86900; 86901; 87086; 93005; 93010; 99285-25; G0378

== ENCOUNTER 2020-03-14 04:37 | Day surgery (SDC) | payer OTHER ==
[2020-03-13 17:13] VITALS: BMI 29.9
[2020-03-14] MEDS ORDERED: ONDANSETRON 4 MG/2 ML VIAL IVPUSH PRN (09:02)
[2020-03-14] MEDS ORDERED: PROPOFOL 20 ML ONE ×3 (09:05→09:42)
[2020-03-14] MEDS ORDERED: SUCCINYLCHOLINE CHLORIDE 200 MG/10 ML SYRINGE ONE (09:09)
[2020-03-14] MEDS ORDERED: LACTATED RINGERS SOLUTION 1,000 ML IV SCH (09:15)
[2020-03-14] MEDS ORDERED: ceFAZolin 2 GRAM PREMIX BAG IVPB ONE (09:30)
[2020-03-14] MEDS ORDERED: LIDOCAINE HCL/PF 2% SDV 5ML VIAL ONE (09:36)
[2020-03-14] MEDS ORDERED: DEXAMETHASONE SOD PHOSPHATE 4 MG/1 ML VIAL ONE (09:36)
[2020-03-14] MEDS ORDERED: ceFAZolin SODIUM 1 GM VIAL ONE (09:36)
--- NOTE | 2020-03-14 10:37 | OP ---
Operative Note - Note: Operative Date: 03/14/20 Pre-Operative Diagnosis: BPH urinary retention Operation: Bipolar TURP Findings: Large lateral and median lobes Surgeon: Dashawn Ramirez MD. Anesthesia: MAC Estimated Blood Loss (mls): 30 Drains & Tubes with Location: barrios to sd Operative Report Dictated: Yes
[2020-03-14] MEDS ORDERED: ELECTROLYTE-148 SOLN 1,000 ML IV SCH (10:45)
--- NOTE | 2020-03-14 11:15 | OP ---
DATE OF OPERATION: 03/14/2020 PREOPERATIVE DIAGNOSIS: Benign prostatic hypertrophy, urinary retention. POSTOPERATIVE DIAGNOSIS: Benign prostatic hypertrophy, urinary retention. PROCEDURE: Bipolar transurethral resection of the prostate. HISTORY: This is a 59-year-old gentleman who had a prior TURP several years ago by outside urologist. Patient initially did well, however, recently failed several voiding trials requiring Marin catheter placement. After discussing treatment options, the patient elected to undergo the above-stated procedure. Risks and benefits of treatment and alternative treatments were discussed in detail. All questions were answered. DESCRIPTION OF PROCEDURE: Patient brought to the operating room, placed in supine position. Once general anesthesia was administered, the patient was transferred to the dorsal lithotomy position, prepped and draped in standard sterile fashion, 2 g of Ancef was given. Time-out was performed. At this time, a 24-Ukrainian resectoscope sheath was placed into bladder under direct vision. There were large lateral lobes, particularly the apex as well as a large median lobe with bullous edema from the prior catheterization. The orifices were not clearly visualized; however, the resection was maintained away from the area of the trigone. At this time, a right lateral lobe was taken down from 10 to 6 o'clock position from the level of the bladder neck to approximately 1 cm proximal to verumontanum. This was also accomplished on the contralateral side. The median lobe was then shaved down and mostly resected. The posterior chips were evacuated out with the ViOptix evacuator. The prostatic fossa as opened. There was a minimal amount of apical tissue residually. The verumontanum was intact. There was no evidence of active bleeding. A 22-Ukrainian 2-way Marin catheter was placed to straight drainage. It was draining blood-tinged urine. Patient was brought to recovery room in stable and satisfactory condition. Maria Dolores [id number]
[2020-03-14 12:54] VITALS: TEMP 98
[2020-03-14 13:48] VITALS: BP 142/73; PULSE 65
--- NOTE | 2020-03-17 13:14 | PATH ---
Surgical Pathology Report Patient Name: ALMITA LAMBERT [facility]. Rec. #: [id number] /Age/Gender: 1960 (Age: 59) / M Account: [id number] Location: [facility] SUR[facility] Taken: 03/14/2020 Received: 03/14/2020 Reported: 03/17/2020 Physicians: Dashawn Ramirez M.D. Specimen(s) Received PROSTATE CHIPS Clinical History BPH Final Diagnosis PROSTATE CHIPS, TRANSURETHRAL RESECTION OF THE PROSTATE: BENIGN PROSTATIC TISSUE WITH GLANDULAR AND STROMAL HYPERPLASIA, MARKED ACUTE AND CHRONIC PROSTATITIS. ADJACENT UROTHELIAL MUCOSA WITH MARKED ACUTE AND CHRONIC INFLAMMATION, FOCAL POLYPOID CYSTITIS. Electronically Signed Irene Inman M.D. Gross Description Received fresh labeled "prostate chips," is a 14 g, 9.5 x 7.0 x 0.6 cm aggregate of hernadez, firm to rubbery portions of tissue, consistent with prostate chips. A dental detail representative portion is submitted in 9 cassettes. saudi/03/15/2020
== END 2020-03-14 15:10 | disposition home or self-care (01) ==
LOC: JASU-SURG 04:37
PROVIDERS: ATTEND Urology
PROC: 0VT08ZZ Resection of Prostate, Via Natural or Artificial Opening Endoscopic (ICD-10-PCS; principal; 2020-03-14 09:00)
DX: N40.1 Benign prostatic hyperplasia with lower urinary tract symptoms (principal); R33.9 Retention of urine, unspecified; E11.9 Type 2 diabetes mellitus without complications; I10 Essential (primary) hypertension; Z79.84 Long term (current) use of oral hypoglycemic drugs
CPT/HCPCS: 82962; 88305-TC; 94760

== ENCOUNTER 2021-08-01 21:20 | Inpatient (IN) | payer OTHER ==
[2021-08-01] MEDS ORDERED: LIDOCAINE HCL 2% JELLY (5 ML/TUBE) ONE (21:42)
[2021-08-01 22:01] LABS: INR 1.03 (0.83-1.09); PROTHROMBIN TIME (PATIENT) 11.8 SEC (9.7-13.0)
[2021-08-01 22:04] LABS: ACTIVATED PTT 28.1 SECONDS (25.2-36.5)
[2021-08-01 22:08] LABS: ALBUMIN 4.1 g/dl (3.4-5.0); BILIRUBIN,TOTAL 0.6 mg/dl (0.2-1); CALCIUM 9.3 mg/dl (8.5-10); CREATININE 1.2 mg/dl (0.55-1.3); TOT PROT 7.2 g/dl (6.4-8.2)
[2021-08-01] MEDS ORDERED: CEFTRIAXONE 1,000 MG in DEXTROSE 5%-WATER - 50 ML IVPB ONE (22:41)
[2021-08-01] MEDS ORDERED: cefTRIAXone SODIUM 1 GM VIAL ONE (22:45)
[2021-08-01 23:10] LABS: BASO % 0.7 % (0-2.0); EOS % 1.9 % (0-4.5); HEMOGLOBIN 13.1 GM/dL (11.7-16.9); LYMPH % 42.8 % (8-40); MCHC 33.5 g/dl (32.0-35.9); MEAN CELL VOLUME 86.6 fl (80-96); MEAN PLT VOLUME 7.4 fl (7.5-11.1); MONO % 8.6 % (3.8-10.2); PLATELET COUNT 298 10^3/uL (134-434); RBC 4.51 M/mm3 (4.00-5.60); RDW 14.7 % (11.9-15.9); WHITE BLOOD COUNT 5.9 K/mm3 (4.0-10.0)
[2021-08-01 23:35] LABS: SARS AG REFLEX COV19 SEND OUT negative (Negative)
[2021-08-02 01:56] VITALS: BMI 30.8
[2021-08-02 08:19] LABS: CALCIUM 8.6 mg/dl (8.5-10)
[2021-08-02] MEDS ORDERED: TAMSULOSIN HCL 0.4 MG CAP PO SCH (08:30)
[2021-08-02] MEDS: LISINOPRIL 20 MG TABLET PO SCH (09:21)
[2021-08-02] MEDS: amLODIPine BESYLATE 5 MG TABLET (FP) PO SCH (09:22)
[2021-08-02] MEDS: FINASTERIDE 5 MG TABLET (FP) PO SCH (09:22)
[2021-08-02] MEDS: metFORMIN HCL 500 MG TABLET (FP) PO SCH ×2 (09:27→16:53)
[2021-08-02 09:28] LABS: BASO % 0.4 % (0-2.0); EOS % 0.2 % (0-4.5); HEMOGLOBIN 11.6 GM/dL (11.7-16.9); LYMPH % 20.1 % (8-40); MCH 29.9 pg (25.7-33.7); MCHC 35.1 g/dl (32.0-35.9); MEAN CELL VOLUME 85.3 fl (80-96); MEAN PLT VOLUME 7.3 fl (7.5-11.1); MONO % 5.5 % (3.8-10.2); NEUT % 73.8 % (42.8-82.8); PLATELET COUNT 273 10^3/uL (134-434); RBC 3.87 M/mm3 (4.00-5.60); RDW 14.6 % (11.9-15.9); WHITE BLOOD COUNT 6.5 K/mm3 (4.0-10.0)
[2021-08-02] MEDS: INSULIN (NOVOLOG) ASPART 100 UNITS/ML 10ML VIAL SQ SCH ×3 (11:17→21:40)
[2021-08-02] MEDS: TAMSULOSIN HCL 0.4 MG CAP PO SCH (17:37)
[2021-08-02] MEDS ORDERED: cefTRIAXone SODIUM 1 GM VIAL ONE (21:06)
[2021-08-02] MEDS ORDERED: DEXTROSE 5%-WATER - 50 ML IVPB ONE (21:07)
[2021-08-02] MEDS ORDERED: ATORVASTATIN CA 40 MG TABLET (FP) PO SCH (22:00)
[2021-08-02] MEDS ORDERED: CEFTRIAXONE 1 GM in DEXTROSE 5%-WATER - 50 ML IVPB SCH (22:00)
[2021-08-03] MEDS: INSULIN (NOVOLOG) ASPART 100 UNITS/ML 10ML VIAL SQ SCH ×2 (07:12→11:20)
[2021-08-03] MEDS: metFORMIN HCL 500 MG TABLET (FP) PO SCH (07:12)
[2021-08-03] MEDS: FINASTERIDE 5 MG TABLET (FP) PO SCH (10:03)
[2021-08-03] MEDS: LISINOPRIL 20 MG TABLET PO SCH (10:04)
[2021-08-03] MEDS: TAMSULOSIN HCL 0.4 MG CAP PO SCH (10:04)
[2021-08-03] MEDS: amLODIPine BESYLATE 5 MG TABLET (FP) PO SCH (10:04)
[2021-08-03] MEDS ORDERED: DEXTROSE 5%-0.45% SALINE 1,000 ML IV SCH (11:00)
[2021-08-03] MEDS ORDERED: SODIUM CHLORIDE 1,000 ML IV SCH (11:15)
[2021-08-03 13:08] LABS: SARS-CoV-2 NAA Not Detected (Not Detected)
[2021-08-03 13:44] VITALS: BP 118/53; PULSE 86; TEMP 98.6
[2021-08-03 13:51] LABS: HEMATOCRIT 32.2 % (35.4-49); HEMOGLOBIN 10.9 GM/dL (11.7-16.9); MCH 29.1 pg (25.7-33.7); MCHC 33.7 g/dl (32.0-35.9); MEAN CELL VOLUME 86.3 fl (80-96); MEAN PLT VOLUME 7.4 fl (7.5-11.1); PLATELET COUNT 256 10^3/uL (134-434); RBC 3.74 M/mm3 (4.00-5.60); RDW 14.8 % (11.9-15.9); WHITE BLOOD COUNT 6.7 K/mm3 (4.0-10.0)
== END 2021-08-03 14:45 | disposition home or self-care (01) | DRG 813 ==
LOC: FER 21:20 → FM/S 22:51 → UNDOADMIN 08-02 01:06 → FM/S 08-02 01:06
PROVIDERS: ADMIT Internal Medicine; ATTEND Nurse Practitioner Acute Care
PROC: 0T9B70Z Drainage of Bladder with Drainage Device, Via Natural or Artificial Opening (ICD-10-PCS; principal; 2021-08-02)
PROC: 3E1K78Z Irrigation of Genitourinary Tract using Irrigating Substance, Via Natural or Artificial Opening (ICD-10-PCS; 2021-08-02)
DX: N99.820 Postprocedural hemorrhage of a genitourinary system organ or structure following a genitourinary system procedure (principal); N39.0 Urinary tract infection, site not specified; R31.9 Hematuria, unspecified; N40.0 Benign prostatic hyperplasia without lower urinary tract symptoms; E11.9 Type 2 diabetes mellitus without complications; I10 Essential (primary) hypertension; R33.9 Retention of urine, unspecified
CPT/HCPCS: 36415; 71045-TC-FY; 80048; 80053; 81003; 81015; 82962; 85025; 85027; 85610; 85730; 86850; 86900; 86901; 87086; 87426; 97116-GP; 97162-GP; 99285-25; C9803; U0003; U0005

== ENCOUNTER 2024-01-01 18:52 | Emergency (ER) | payer OTHER ==
[2024-01-01 19:16] VITALS: BP 161/81; PULSE 86; RESP 18; TEMP 99; BMI 27.6
[2024-01-01] MEDS: SODIUM CHLORIDE 1,000 ML IV ONE (19:29)
[2024-01-01] MEDS ORDERED: KETOROLAC TROMETHAMINE 30 MG/1 ML VIAL ONE (19:30)
[2024-01-01] MEDS: KETOROLAC TROMETHAMINE 30 MG/1 ML VIAL IVPUSH ONE (19:32)
[2024-01-01 19:43] LABS: HEMATOCRIT 45.8 % (35.4-49); HEMOGLOBIN 14.6 G/dL (11.7-16.9); MCHC 31.9 g/dl (32.0-35.9); MEAN CELL VOLUME 90.6 fl (80-96); MEAN PLT VOLUME 7.8 fl (7.5-11.1); PLATELET COUNT 213.6 10^3/uL (134-434); RBC 5.05 10^6/uL (4.00-5.60); WHITE BLOOD COUNT 4.4 10^3/uL (4.0-10.8)
[2024-01-01 19:58] LABS: ALBUMIN 4.6 g/dl (3.4-5.0); BILIRUBIN,TOTAL 0.3 mg/dl (0.2-1); CALCIUM 9.3 mg/dl (8.5-10.1); CREATININE 1.1 mg/dl (0.6-1.3); POTASSIUM 4.1 mmol/L (3.5-5.1)
== END 2024-01-01 22:04 | disposition home or self-care (01) ==
LOC: FER 18:52
PROC: 3E0333Z Introduction of Anti-inflammatory into Peripheral Vein, Percutaneous Approach (ICD-10-PCS; principal; 2024-01-01)
PROC: 3E0337Z Introduction of Electrolytic and Water Balance Substance into Peripheral Vein, Percutaneous Approach (ICD-10-PCS; 2024-01-01)
DX: R31.0 Gross hematuria (principal)
CPT/HCPCS: 36415; 74176-TC; 80053; 81003; 81015; 82550; 85027; 87086; 99284-25